=== PATIENT | female | born 1980 | race Caucasian/White ===

== ENCOUNTER 2019-05-18 06:28 | Emergency (ER) | payer SELFPAY ==
[2019-05-18 06:29] VITALS: BP 142/80; PULSE 65; RESP 16; TEMP 36.2; O2SAT 96; BMI 38.2
--- NOTE | 2019-05-18 06:41 | ED.VISSUMM ---
- ER Visit Summary Date of Service: 05/18/19 Chief Complaint: Back pain History of Present Illness: The patient is a 39 F who presents with back pain. She has a history of fibromyalgia as well as lower back pain and was told clinically this was most likely due to a herniated disc. This is been increased over the last 2 weeks and particularly the last few days. It is worse at night when laying flat. She describes it as aching. Her pain is in her right lower back and radiates around to the right groin and down the right leg to about the level of the knee. She also complains of some tingling. No weakness. No fevers urinary retention fecal incontinence. She rates it as an 8 out of 10. She has been taking her prescribed gabapentin and naproxen. Physical Examination: Afebrile vitals unremarkable Patient appears comfortable smiling laughing with staff Heart regular rate and rhythm Lungs are clear Abdomen soft nontender nondistended Patient does have some paraspinal right lumbar tenderness Negative straight leg raise bilaterally Normal strength and sensation of the lower extremities with 5 out of 5 dorsiflexion, plantarflexion, EHL Easily palpable symmetric dorsalis pedis pulses Test Results: Not indicated Emergency Department Course and Treatment: Patient's presentation is consistent with lumbar radiculopathy. We will treat with a prednisone burst. She was advised on supportive care and advised to follow-up with her primary care physician should she understands to return for new or worsening symptoms. She was discharged. Treatment Plan: [] Disposition: Discharge Impression: Lumbar radiculopathy This note was generated with [employer] dictation software. It may contain incorrect words, spelling, and punctuation that were not noted in review of the chart prior to signing ED Disposition - Plan for ED Patient: Referrals: Juve Jiang DO [Primary Care Provider] -
--- NOTE | 2019-05-18 06:44 | ED.DEP ---
ED Disposition - Plan for ED Patient: Instructions: BACK PAIN w/ SCIATICA Prescriptions: predniSONE tablet 60 mg PO DAILY #15 tab Prescription Printed Referrals: Juve Jiang DO [Primary Care Provider] -
[2019-05-18 06:47] VITALS: RESP 14
== END 2019-05-18 06:49 | disposition home or self-care (01) ==
LOC: ED 06:46
PROVIDERS: Emergency Provider Emergency Medicine; Family Provider Student in an Organized Health Care Education/Training Program; PCP Student in an Organized Health Care Education/Training Program
DX: M54.16 Radiculopathy, lumbar region (principal); M79.7 Fibromyalgia; Z72.0 Tobacco use; Z79.899 Other long term (current) drug therapy
CPT/HCPCS: 99282

== ENCOUNTER 2019-09-29 13:36 | Emergency (ER) | payer OTHER, SELFPAY ==
[2019-09-29 13:37] VITALS: BP 140/100; PULSE 88; RESP 20; TEMP 36.7; O2SAT 100; BMI 38.0
--- NOTE | 2019-09-29 13:41 | EKG12_ITS ---
Test Reason : CP Blood Pressure : / mmHG Vent. Rate : 071 BPM Atrial Rate : 071 BPM P-R Int : 126 ms QRS Dur : 084 ms QT Int : 396 ms P-R-T Axes : 029 006 015 degrees QTc Int : 430 ms Normal sinus rhythm with sinus arrhythmia Nonspecific ST abnormality Abnormal ECG Confirmed by JOANA FORRESETR, VALERIE ([id number]), legal editor DAVID DIEHL ([id number]) on 10/03/2019 11:36:30 AM Referred By: LETTY Confirmed By:VALERIE BERNARD MD
[2019-09-29] MEDS: Aspirin 81 MG TAB.CHEW 324 MG PO (13:48)
--- NOTE | 2019-09-29 13:50 | RAD_ITS ---
STUDY: X-RAY CHEST REASON FOR EXAM: Female, 39 years old. Chest tightness. TECHNIQUE: Single AP portable view of the chest. COMPARISON: None. FINDINGS: EKG electrodes are seen. The lungs are clear and expanded. Scattered calcified granulomas. There is no demonstrated pleural abnormality. Normal size heart. Normal mediastinum and alejandra. Normal visualized pulmonary arteries. Normal visualized aortic arch and descending thoracic aorta. Normal visualized thoracic spine. Normal visualized ribs, clavicles, and shoulders. There is no demonstrated abnormality of the visualized soft tissue structures of the upper abdomen. RAD/Chest 1 View (Portable) IMPRESSION: Normal x-ray examination of the chest. Electronically Signed: Radhames Singh, at 14:14 EST , Service support ,
--- NOTE | 2019-09-29 13:52 | ED.DCSUM_ITS ---
- ER Visit Summary Date of Service: 09/29/19 Chief Complaint: Chest discomfort History of Present Illness: The patient is a 39 F history of fibromyalgia and a prior DVT after surgery. She is not on blood thinners. States that she has had a recent cough with URI. And earlier this morning around 1 AM woke up with some chest discomfort in her sternal area. Went back to sleep. When she woke up again later this morning she had discomfort that would radiate to her arms and her neck. Really no shortness of breath. No hemoptysis. Is not pleuritic. She is more of a dull aching pain. Is worse with movement. She denies any nausea or diaphoresis. No leg pain or swelling. She has no cardiac history other than a possible heart murmur. She denies any recent exertional dyspnea or exertional chest pain. There is no family history of coronary artery disease. Physical Examination: Middle-aged female no acute distress initial blood pressure 140/100. Pulse ox 9% on room air no signs hypoxia. HEENT exam unremarkable neck nontender. Lungs clear to auscultation bilaterally. Heart regular rhythm no murmur. Chest wall shows reproducible sternal chest wall pain. No subcu air crepitance. Abdomen soft nontender normal bowel sounds no peritoneal signs. Patient is moving all 4 extremities. Equal symmetrical radial pulses. Calves are nontender without edema no cords. Neurologically she is awake and alert. Test Results: Initial EKG shows a sinus rhythm rate of 71 with a sinus arrhythmia. No acute signs of LA or ischemia. Portable chest x-ray one view read on myself the radiologist shows no acute abnormality. Normal cardiac silhouette mediastinum. CBC normal. Chemistries normal. Troponin normal. [place] EKG showed a sinus bradycardia but no acute LA or ischemia. Otherwise unchanged. Both EKGs are unchanged from a prior from 2013. Emergency Department Course and Treatment: She will undergo a cardiac work-up. She will be given aspirin. Clinically I think this is noncardiac chest pain most likely chest wall pain or from her fibromyalgia and/or her cough. Clinically does not appear to be a PE. Is not pleuritic. There is no hemoptysis. She is not tachycardic. She is non-hypoxic. There is no leg pain or swelling. Repeat exam at 1458 patient is doing well. Clinically I do not think this is cardiac. It is reproducible. It is not exertional. Treatment Plan: Ice to her chest wall. Motrin for pain. Follow-up. Disposition: Discharge Impression: Acute chest pain Acute chest wall pain This note was generated with [employer] dictation software. It may contain incorrect words, spelling, and punctuation that were not noted in review of the chart prior to signing ED Disposition - Plan for ED Patient: Disposition: Home or Assisted Living Instructions: Chest Wall Strain Referrals: Juve Jiang DO [Primary Care Provider] - As Needed Additional Instructions: Ice to chest wall. Motrin for pain. Follow-up with his doctor if not improving or return if worse.
[2019-09-29 13:55] LABS: Absolute Lymphocyte Count 2.35 X10^3/uL (0.83-4.51); Absolute Neutrophil Count 5.1 X10^3/uL (2.0-7.7); Basophil# 0.03 X10^3/uL; Basophil% 0.4 % (0-1); Eosinophil# 0.13 X10^3/uL; Eosinophils% 1.5 % (0-5); Hematocrit 44.8 % (37-47); Hemoglobin 14.8 g/dL (12.0-15.0); Lymphocyte # 2.35 X10^3/ul (4.0); Mean Corpuscular Hgb 31.6 pg (27.0-32.0); Mean Corpuscular Volume 95.7 fL (81-99); Mean Platelet Vol. 9.4 fl (6.2-12.0); Monocyte# 0.73 X10^3/uL; Monocyte% 8.7 % (0-10); NRBC Flagged by Analyzer 0 % (0-5); Neutrophil # 5.14 X10^3/uL (2.7-7.7); Neutrophil % 61.2 % (47-70); Platelet Count 315 K/mm3 (150-450); RBC Distribution Width CV 13.5 % (11.6-14.6); RBC Distribution Width SD 47.7 fl (35.1-43.9); Red Blood Count 4.68 M/mm3 (4.2-5.4); White Blood Count 8.4 K/mm3 (4.4-11.0)
[2019-09-29 14:23] LABS: Anion Gap 5 (5-15); BUN 8 mg/dL (7-18); BUN/Creat Ratio 8.9 RATIO (10-20); Calcium,Total 8.9 mg/dL (8.5-10.1); Chloride 107 mmol/L (98-107); EST Glomerular Filtration Rate 74 mL/min (>60); Est Glom Filt Rate - Afr Amer 90 mL/min (>60); Estimated Creatinine Clearance 84.66 ml/min; Glucose 107 mg/dL (74-106); Potassium 3.7 mmol/L (3.5-5.1); Sodium Level 139 mmol/L (136-145)
--- NOTE | 2019-09-29 15:00 | ED.DEP ---
ED Disposition - Plan for ED Patient: Disposition: Home or Assisted Living Instructions: Chest Wall Strain Referrals: Juve Jiang DO [Primary Care Provider] - As Needed Additional Instructions: Ice to chest wall. Motrin for pain. Follow-up with his doctor if not improving or return if worse.
--- NOTE | 2019-09-29 15:01 | EKG12_ITS ---
Test Reason : REPEAT Blood Pressure : / mmHG Vent. Rate : 052 BPM Atrial Rate : 052 BPM P-R Int : 130 ms QRS Dur : 076 ms QT Int : 458 ms P-R-T Axes : 034 014 027 degrees QTc Int : 425 ms Sinus bradycardia Otherwise normal ECG Confirmed by JOANA FORRESTER, VALERIE ([id number]), non linear editor DAVID DIEHL ([id number]) on 10/03/2019 11:36:47 AM Referred By: LETTY Confirmed By:VALERIE BERNARD MD
[2019-09-29 15:26] VITALS: BP 116/94; PULSE 68; RESP 18; O2SAT 96
== END 2019-09-29 15:27 | disposition home or self-care (01) ==
PROVIDERS: Emergency Provider Emergency Medicine; Family Provider Student in an Organized Health Care Education/Training Program; PCP Student in an Organized Health Care Education/Training Program
DX: R07.89 Other chest pain (principal); M79.7 Fibromyalgia; Z72.0 Tobacco use; Z79.899 Other long term (current) drug therapy; Z86.718 Personal history of other venous thrombosis and embolism
CPT/HCPCS: 71045; 80048; 84484; 85025; 93005; 99285; A4216

== ENCOUNTER 2020-10-02 22:04 | Emergency (ER) | payer OTHER, SELFPAY ==
[2020-03-27 14:08] VITALS: BMI 38.0
[2020-10-02 22:05] VITALS: BP 153/95; PULSE 114; RESP 16; TEMP 37.1; O2SAT 97; BMI 36.5
--- NOTE | 2020-10-02 22:14 | CT_ITS ---
STUDY: CT FACIAL BONES WITHOUT CONTRAST REASON FOR EXAM: Female, 40 years old. PULLED DOWN STAIRS BY HER DOG. FACIAL ABRASIONS. LAC LT CHEEK. NO LOC RADIATION DOSAGE (If Supplied By Facility): CTDIvol = ( 29.38 ) mGy, DLP = ( 562.15 ) mGycm TECHNIQUE: The patient was scanned in a multi detector CT scanner. Sagittal and coronal images were reconstructed. Individualized dose optimization techniques were used for this CT. COMPARISON: None. FINDINGS: Subcutaneous hematoma left cheek. Normal orbital freeman and orbital contents. Normal nasal bones and anterior nasal spine. Normal facial bones. There is no demonstrated fracture. Normal visualized paranasal sinuses. CT/Sinus/Facial Bone IMPRESSION: Subcutaneous hematoma left cheek. No fracture. Electronically Signed: Benedicto Gill MD at 22:40 EST , Service support ,
--- NOTE | 2020-10-02 22:15 | ED.DCSUM_ITS ---
- ER Visit Summary Date of Service: 10/02/20 Chief Complaint: Fall History of Present Illness: The patient is a 40 F who presents after a fall. Her dog pulled her down some stairs just prior to arrival. She sustained injuries to her face and left knee. Denies any LOC. She has tenderness in the left cheek area. Her left knee is also tender. Pain is worse with touching and walking. She took no medications for this at home. She denies any history of any knee surgeries. She is on no blood thinning medications. Physical Examination: Vital signs reviewed. Patient exam shows tenderness and slight swelling to the left zygoma area. There is a abrasion to the left side of the face. There is no nasal trauma. Her cervical spine is nontender. Heart is regular rate and rhythm without murmurs. Lungs are clear to auscultation. Abdomen is soft and nontender. Extremities reveal tenderness diffusely about the left knee. She has limited range of motion secondary to pain. Her extensor mechanism is intact. There is an abrasion on the infrapatellar area. No laceration is noted. Her GCS is 15. Neurologic exam normal. Test Results: CAT scan of the facial bones shows no acute abnormalities except for a hematoma. No fractures are seen. 3 view x-ray of the left knee interpreted by myself and radiologist shows no acute findings Emergency Department Course and Treatment: His tetanus was updated. She was given [place] for pain here. No fractures are seen on imaging studies. Patient will be discharged to use ice for her discomfort. I will give her a prescription for naproxen. She will call her doctor for follow-up Treatment Plan: [] Disposition: Discharge Impression: Facial contusion, left knee contusion, multiple abrasions This note was generated with [employer] dictation software. It may contain incorrect words, spelling, and punctuation that were not noted in review of the chart prior to signing ED Disposition - Plan for ED Patient: Disposition: Home or Assisted Living Instructions: ED Mechanical Fall Prescriptions: Naproxen [Naprosyn] 500 mg PO BID PRN #20 tab Transmission Status: Pending to [facility] Referrals: Juve Jiang DO [Primary Care Provider] -
[2020-10-02] MEDS: Diphth,Pertuss(Acell),Tet Vac 0.5 ML Vial IM (22:20)
[2020-10-02] MEDS: HYDROcodone Bitartrate/Apap 5/325 Tablet PO (22:20)
--- NOTE | 2020-10-02 22:27 | RAD_ITS ---
STUDY: X-RAY - LEFT KNEE REASON FOR EXAM: Female, 40 years old. Pulled down stairs by her dog. Abrasion to anterior left knee. TECHNIQUE: 3 view(s) of the knee. COMPARISON: None. FINDINGS: Normal visualized distal femur. Normal visualized proximal tibia and fibula. Normal proximal tibiofibular articulation. Normal medial femorotibial compartment. Normal lateral femorotibial compartment. Normal patellofemoral articulation. The soft tissue structures are unremarkable. RAD/Knee 3 Views IMPRESSION: Normal x-ray examination of the knee. Electronically Signed: Benedicto Gill MD at 22:43 EST , Service support ,
[2020-10-02 23:00] VITALS: O2SAT 99
== END 2020-10-02 23:01 | disposition home or self-care (01) ==
PROVIDERS: Emergency Provider Emergency Medicine; PCP Student in an Organized Health Care Education/Training Program
DX: S00.83XA Contusion of other part of head, initial encounter (principal); S80.02XA Contusion of left knee, initial encounter; S80.212A Abrasion, left knee, initial encounter; S00.81XA Abrasion of other part of head, initial encounter; W10.9XXA Fall (on) (from) unspecified stairs and steps, initial encounter; Y93.9 Activity, unspecified; Y92.9 Unspecified place or not applicable; F32.9 Major depressive disorder, single episode, unspecified; Z79.899 Other long term (current) drug therapy; Z72.0 Tobacco use
CPT/HCPCS: 70486; 73562; 90715; 99283

== ENCOUNTER 2020-10-08 17:09 | Emergency (ER) | payer OTHER, SELFPAY ==
[2020-10-08 17:10] VITALS: BP 142/103; PULSE 57; RESP 16; TEMP 36.8; O2SAT 100; BMI 38.0
--- NOTE | 2020-10-08 17:22 | NURSING ---
pt fell last thursday and was seen in ed. c/o increased swelling and hardened area under lt eye. pt has discolorization from lt eye down to jaw line. lac to lt cheek, above lt side of upper lip.
--- NOTE | 2020-10-08 17:29 | CT_ITS ---
STUDY: CT FACIAL BONES WITHOUT CONTRAST REASON FOR EXAM: Female, 40 years old. LEFT FACIAL SWELLING AFTER RECENT FALL. SEEN ON 10.02 FOR SAME, BRUISING TO FACE RADIATION DOSAGE (If Supplied By Facility): CTDIvol = ( 29.38 ) mGy, DLP = ( 642.95 ) mGycm TECHNIQUE: Axial CT images of the facial bones were obtained with multiplanar reconstruction. The protocol utilizes one or more of the following dose reduction techniques: automated exposure control, adjustment of the mA and/or KV according to the patient size, and/or use of iterative reconstruction techniques. Individualized dose optimization techniques were used for this CT. COMPARISON: Facial bone CT dated October 02, 2020 FINDINGS: Soft Tissues: Reidentification of small left mid facial subcutaneous hematoma which is slightly smaller in size currently measuring 2.91 x 1.57 cm compared to the previous measurement of 3.25 x 1.77 cm. Facial Bones: Normal: No fracture or destructive process. Mandible/TMJ: Normal. Orbital Contents: Normal globes, extraocular muscles, optic nerves, intraconal and extraconal spaces. Normal lamina papyracea. Visualized Paranasal Sinuses: Normal. Visualized Mastoid Air Cells: Normal. CT/Sinus/Facial Bone IMPRESSION: 1. Reidentification of small left mid facial subcutaneous hematoma which is slightly smaller in size currently measuring 2.91 x 1.57 cm compared to the previous measurement of 3.25 x 1.77 cm. Electronically Signed: Rosales Urban MD at 18:48 EST , Service support ,
--- NOTE | 2020-10-08 17:34 | ED.VIS.GEN ---
History of Present Illness Chief Complaint: Other, Pain/Inj Informant: Patient Onset: Yesterday Context: Gradual Onset Timing: Continuous Current Severity: Moderate Maximum Severity: Moderate Narrative: The patient is a 40-year-old female with no significant medical history the presents to the emergency department with facial pain. The patient had a mechanical fall about a week ago. She was actually seen here at that time. She underwent imaging which showed a hematoma, but no fracture. She states the swelling was going down. That she had a small abrasion on the area and when she was wearing her mask it seemed to increase the swelling. Yesterday, she states her dog jumped and struck her in the face. Since then, the area has gotten more hard. She denies headache or visual change. She states she is otherwise been in her normal state of health. Prior similar symptoms: Yes Recent Illness/Hospitalization: No Past Medical History - Allergies and Home Meds Allergies/Adverse Reactions: Allergies codeine Adverse Reaction (Verified 10/08/20 17:12) Nausea/Vom/Diarrhea Primary Care Physician: Juve Jiang DO [Primary Care Provider] - Prior records reviewed: Yes Past Medical History: None Surgical History: noncontributory Smoking Status: Current every day smoker Review of Systems General: Denies: Chills, Fever, Sweats Eyes: Denies: Visual changes - bilaterally, Diplopia ENT: Denies: Rhinorrhea, Sore throat Cardiovascular: Denies: Chest pain, Palpitations Respiratory: Denies: Dyspnea, Cough, Dyspnea on exertion Gastrointestinal: Denies: Abdominal pain, Nausea, Vomiting, Diarrhea, Melena, Hematochezia Genitourinary: Denies: Dysuria, Hematuria, Frequency Musculoskeletal: Denies: Back pain, Extremity Pain Skin: Denies: Rash, Wounds Neurological: Denies: Headache, Weakness, Numbness Physical Exam Vital Signs/Narrative: Vital Signs Temp Pulse Resp BP Pulse Ox 10/08/20 17:10 98.3 F 57 L 16 142/103 H 100 Inital Vital Signs reviewed: Yes General: Well nourished, Well developed, No Acute Distress Head: Normocephalic, Trauma - Hematoma over the left cheek into the zygomatic arch. There is tenderness, but no fluctuance. No abnormalities of extraocular motion. Eyes: Perrl, EOMI ENT: Moist mucous membranes, No rhinorrhea Neck: Supple, Nontender Cardiovascular: Regular rate, Regular rhythm, No murmurs Respiratory: No distress, CTA bilaterally, Chest nontender Abdomen: Soft, Nontender, Nondistended, Normal bowel sounds Back: Nontender, Normal Inspection Extremities: Nontender, No edema Skin: Normal color, No rash Neurological: Alert, Oriented x3, Cranial nerves II-XII grossly intact, Normal Strength, Normal Sensation Psychological: Normal affect, Normal Mood Diagnostic/Tx/Re-eval Clinical Impression(s) from Imaging Studies Facial/Sinus 10/08/20 17:29 IMPRESSION: 1. Reidentification of small left mid facial subcutaneous hematoma which is slightly smaller in size currently measuring 2.91 x 1.57 cm compared to the previous measurement of 3.25 x 1.77 cm. Electronically Signed: Rosales Urban MD at 18:48 EST , Service support , - Medical Decision Making The patient did have new injury and reaccumulation of hematoma. There is no central fluctuance. The skin itself is not erythematous. I did repeat the images to make sure there is no new occult fracture. This shows hematoma, but it is smaller. There is no air-fluid level. I do not feel this represents a facial abscess. However, given the duration of her hematoma and the tenderness she has in the area, I am going to cover her with doxycycline. She is comfortable with this plan of care. She was counseled on concerning symptoms and reasons to return. She will be discharged home. Impression 1. Left facial hematoma ED Disposition - Plan for ED Patient: Disposition: Home or Assisted Living Instructions: ED Hematoma Prescriptions: Doxycycline 100 mg PO BID #20 cap Prescription Printed Referrals: Juve Jiang DO [Primary Care Provider] -
== END 2020-10-08 19:02 | disposition home or self-care (01) ==
LOC: ED 17:34
PROVIDERS: Emergency Provider Emergency Medicine; PCP Student in an Organized Health Care Education/Training Program
DX: S00.83XA Contusion of other part of head, initial encounter (principal); W19.XXXA Unspecified fall, initial encounter; Y93.9 Activity, unspecified; Y92.9 Unspecified place or not applicable; F17.200 Nicotine dependence, unspecified, uncomplicated
CPT/HCPCS: 70486; 99282

== ENCOUNTER 2020-11-06 08:15 | Emergency (ER) | payer OTHER, SELFPAY ==
[2020-11-06 08:15] VITALS: BP 155/98; PULSE 90; RESP 16; TEMP 36.2; O2SAT 97; BMI 36.5
--- NOTE | 2020-11-06 08:27 | CT_ITS ---
STUDY: CT PARANASAL SINUSES WITH CONTRAST REASON FOR EXAM: Female, 40 years old. Persistent facial hematoma with left eye swelling, fell 1 month ago. RADIATION DOSAGE (If Supplied By Facility): CTDIvol = ( 29.38 ) mGy, DLP = ( 613.57 ) mGycm TECHNIQUE: The patient was scanned in a multi-detector CT scanner. High resolution transaxial imaging was performed following the intravenous administration of IV 100mL Isovue-300. Sagittal and coronal images were reconstructed. Individualized dose optimization techniques were used for this CT. COMPARISON: Comparison is made with prior examination dated 10/08/2021. FINDINGS: FRONTAL SINUSES: Normal development and aeration of the bilateral frontal sinuses without mucosal inflammatory disease. ETHMOIDAL SINUSES: Normal development and aeration of the bilateral ethmoidal air cells without mucosal inflammatory disease. MAXILLARY SINUSES: Normal development and aeration of the bilateral maxillary antra without mucosal inflammatory disease. SPHENOIDAL SINUSES: Normal aeration of the bilateral sphenoid sinuses and there is no mucosal inflammatory disease. OMU: Normal aeration of the bilateral maxillary infundibulum. Normal uncinate process, ethmoid bulla, and hiatus semilunaris. MIDDLE TURBINATES: Normal bilateral middle turbinates without a liss bullosa or paradoxical curvature. INFERIOR TURBINATES: Normal bilateral inferior turbinates. NASAL SEPTUM: Normal midline nasal septum and there is no nasal septal mass lesions, deviation or spur. Normal anterior cranial fossa, gricelda brandi and cribriform plate. Normal bilateral orbital contents. Normal nasopharynx without adenoidal pad hypertrophy, or a posterior nasopharyngeal retention cyst. Persistent 1.3 cm x 1.5 cm soft tissue density in the subcutaneous tissues overlying the anterior aspect of the left maxillary sinus. This is improved as compared to prior study. CT/Sinus/Facial Bone WITH Contras IMPRESSION: For the decreasing size of the small left mid facial subcutaneous hematoma presently measuring 1.3 cm x 1.5 cm. Electronically Signed: Radhames Singh MD at 9:17 EST , Service support ,
--- NOTE | 2020-11-06 08:28 | ED.VIS.GEN ---
History of Present Illness Chief Complaint: Head Injury Informant: Patient Onset: Weeks Context: Gradual Onset Timing: Continuous Current Severity: Moderate Maximum Severity: Moderate Narrative: The patient is a 40-year-old female who presents with facial swelling. The patient had an injury about 6 weeks ago. At that point, she had a fall and struck her face. She had a CT at that time which showed hematoma without fracture. About a week after, the patient was improving and then got hit in the face by her dog. I actually evaluated her at that time. I did repeat her imaging. There was still small hematoma but it was improved in size. Due to the patient's increasing erythema, she was placed on antibiotics. She states that she felt like it got better for about 2 weeks. However, over the past 2 weeks the symptoms have worsened. She states she feels like there is a hard knot under her laceration from her initial injury. She states that because of that, she is getting a lot of swelling of her lower eyelid. She states sometimes, she will have blurry vision because her eye is watering. She denies fevers or chills. Prior similar symptoms: Yes Recent Illness/Hospitalization: No Past Medical History - Allergies and Home Meds Allergies/Adverse Reactions: Allergies codeine Adverse Reaction (Verified 11/06/20 08:17) Nausea/Vom/Diarrhea Primary Care Physician: Yaakov Hugo MD [STAFF PHYSICIAN] - Prior records reviewed: Yes Past Medical History: None Surgical History: noncontributory Smoking Status: Current every day smoker Review of Systems General: Denies: Chills, Fever, Sweats Eyes: Reports: Blurred vision - left. Denies: Visual changes - bilaterally, Diplopia ENT: Denies: Rhinorrhea, Sore throat Cardiovascular: Denies: Chest pain, Palpitations Respiratory: Denies: Dyspnea, Cough, Dyspnea on exertion Gastrointestinal: Denies: Abdominal pain, Nausea, Vomiting, Diarrhea, Melena, Hematochezia Genitourinary: Denies: Dysuria, Hematuria, Frequency Musculoskeletal: Denies: Back pain, Extremity Pain Skin: Denies: Rash, Wounds Neurological: Denies: Headache, Weakness, Numbness Physical Exam Vital Signs/Narrative: Vital Signs Temp Pulse Resp BP Pulse Ox 11/06/20 08:15 97.2 F L 90 16 155/98 H 97 Inital Vital Signs reviewed: Yes General: Well nourished, Well developed, No Acute Distress Head: Normocephalic, Atraumatic Eyes: Perrl, EOMI, - - Slight edema of the left lower lid. No abnormalities of extraocular motion. Tenderness to palpation along the left mandibular area without fluctuance. ENT: Moist mucous membranes, No rhinorrhea Neck: Supple, Nontender Cardiovascular: Regular rate, Regular rhythm, No murmurs Respiratory: No distress, CTA bilaterally, Chest nontender Abdomen: Soft, Nontender, Nondistended, Normal bowel sounds Back: Nontender, Normal Inspection Extremities: Nontender, No edema Skin: Normal color, No rash Neurological: Alert, Oriented x3, Cranial nerves II-XII grossly intact, Normal Strength, Normal Sensation Psychological: Normal affect, Normal Mood Diagnostic/Tx/Re-eval Clinical Impression(s) from Imaging Studies Facial/Sinus 11/06/20 08:27 IMPRESSION: For the decreasing size of the small left mid facial subcutaneous hematoma presently measuring 1.3 cm x 1.5 cm. Electronically Signed: Radhames Singh MD at 9:17 EST , Service support , Abnormal Lab Results 11/06/20 11/06/20 08:37 08:37 WBC 6.6 RBC 4.75 Hgb 14.7 Hct 43.6 MCV 91.8 MCH 30.9 MCHC 33.7 RDW Std Deviation 46.6 H RDW Coeff of Jose 13.7 Plt Count 295 MPV 9.6 Immature Gran % (Auto) 0.300 Neut % (Auto) 62.7 Lymph % (Auto) 25.7 [place] % (Auto) 8.7 Eos % (Auto) 2.0 Baso % (Auto) 0.6 Absolute Neuts (auto) 4.1 Absolute Lymphs (auto) 1.69 Nucleated RBC % 0 Sodium 139 Potassium 3.9 Chloride 109 H Carbon Dioxide 25.0 Anion Gap 5 BUN 10 Creatinine 0.92 Estim Creat Clear Calc 82.00 Est GFR (MDRD) Af Amer 87 Est GFR (MDRD) Non-Af 72 BUN/Creatinine Ratio 10.9 Glucose 97 Calcium 9.0 - Medical Decision Making The patient has persistent swelling along facial hematoma. The area is more firm. There is no central fluctuance. Her recurrent edema does seem to be dependent. She states worse in the morning when she wakes up. She is had no significant visual change. There is no abnormalities of extraocular motion. However, given the persistent edema I did repeat imaging with contrast. The hematoma is actually smaller. There is no evidence of deep space infection or obstructive process. However, given the duration I am going to give her outpatient plastic surgery follow-up. She did have significant improvement with antibiotics prior and I do feel that this is reasonable. Patient will be discharged home. Impression 1. Persistent left facial hematoma ED Disposition - Plan for ED Patient: Instructions: ED Facial Contusion Prescriptions: Doxycycline 100 mg PO BID #20 cap Prescription Printed Referrals: Yaakov Hugo MD [STAFF PHYSICIAN] -
[2020-11-06 08:53] LABS: Absolute Lymphocyte Count 1.69 X10^3/uL (0.83-4.51); Absolute Neutrophil Count 4.1 X10^3/uL (2.0-7.7); Basophil# 0.04 X10^3/uL; Basophil% 0.6 % (0-1); Eosinophil# 0.13 X10^3/uL; Hematocrit 43.6 % (37-47); Hemoglobin 14.7 g/dL (12.0-15.0); Lymphocyte # 1.69 X10^3/ul (4.0); Lymphocyte % 25.7 % (19-41); Mean Corp Hgb Conc 33.7 g/dL (32-36); Mean Corpuscular Hgb 30.9 pg (27.0-32.0); Mean Corpuscular Volume 91.8 fL (81-99); Mean Platelet Vol. 9.6 fl (6.2-12.0); Monocyte# 0.57 X10^3/uL; Monocyte% 8.7 % (0-10); NRBC Flagged by Analyzer 0 % (0-5); Neutrophil # 4.12 X10^3/uL (2.7-7.7); Neutrophil % 62.7 % (47-70); Platelet Count 295 K/mm3 (150-450); RBC Distribution Width CV 13.7 % (11.6-14.6); RBC Distribution Width SD 46.6 fl (35.1-43.9); Red Blood Count 4.75 M/mm3 (4.2-5.4); White Blood Count 6.6 K/mm3 (4.4-11.0)
[2020-11-06 08:57] LABS: BUN 10 mg/dL (7-18); BUN/Creat Ratio 10.9 RATIO (10-20); Chloride 109 mmol/L (98-107); Creatinine, Serum 0.92 mg/dL (0.55-1.02); EST Glomerular Filtration Rate 72 mL/min (>60); Est Glom Filt Rate - Afr Amer 87 mL/min (>60); Glucose 97 mg/dL (74-106); Potassium 3.9 mmol/L (3.5-5.1); Sodium Level 139 mmol/L (136-145)
[2020-11-06 08:58] LABS: Anion Gap 5 (5-15)
== END 2020-11-06 09:35 | disposition home or self-care (01) ==
LOC: ED 09:19
PROVIDERS: Emergency Provider Emergency Medicine; PCP Student in an Organized Health Care Education/Training Program
DX: S00.83XA Contusion of other part of head, initial encounter (principal); H02.845 Edema of left lower eyelid; W19.XXXA Unspecified fall, initial encounter; Y93.9 Activity, unspecified; Y92.9 Unspecified place or not applicable; F17.200 Nicotine dependence, unspecified, uncomplicated
CPT/HCPCS: 70487; 80048; 85025; 99283; Q9967; A4216

== ENCOUNTER 2021-12-30 16:06 | Emergency (ER) | payer OTHER, SELFPAY ==
[2021-12-30 16:07] VITALS: BP 157/107; PULSE 77; RESP 17; TEMP 36.3; O2SAT 96; BMI 38.5
--- NOTE | 2021-12-30 16:52 | EKG12_ITS ---
Test Reason : CP Blood Pressure : / mmHG Vent. Rate : 068 BPM Atrial Rate : 068 BPM P-R Int : 128 ms QRS Dur : 078 ms QT Int : 394 ms P-R-T Axes : 050 016 033 degrees QTc Int : 418 ms Normal sinus rhythm Normal ECG Confirmed by JOANA FORRESTER, VALERIE ([id number]), dictionary editor MURTAAZ VERA ([id number]) on 01/02/2022 10:01:36 AM Referred By: AMARIS/RAIMUNDO Confirmed By:VALERIE BERNARD MD
[2021-12-30 17:06] VITALS: BP 128/80; PULSE 62; RESP 14; O2SAT 96
[2021-12-30] MEDS: Aspirin 81 MG TAB.CHEW 324 MG PO (17:10)
[2021-12-30 17:17] LABS: Absolute Lymphocyte Count 1.92 X10^3/uL (0.83-4.51); Absolute Neutrophil Count 4.8 X10^3/uL (2.0-7.7); Basophil# 0.04 X10^3/uL; Basophil% 0.5 % (0-1); Eosinophil# 0.08 X10^3/uL; Eosinophils% 1.1 % (0-5); Hematocrit 43.1 % (37-47); Hemoglobin 14.4 g/dL (12.0-15.0); Lymphocyte # 1.92 X10^3/ul (0.83-4.51); Lymphocyte % 25.3 % (19-41); Mean Corp Hgb Conc 33.4 g/dL (32-36); Mean Corpuscular Hgb 31.6 pg (27.0-32.0); Mean Corpuscular Volume 94.7 fL (81-99); Mean Platelet Vol. 9.7 fl (6.2-12.0); Monocyte# 0.69 X10^3/uL; Monocyte% 9.1 % (0-10); NRBC Flagged by Analyzer 0 % (0-5); Neutrophil # 4.83 X10^3/uL (2.7-7.7); Neutrophil % 63.6 % (47-70); Platelet Count 278 K/mm3 (150-450); Red Blood Count 4.55 M/mm3 (4.2-5.4); White Blood Count 7.6 K/mm3 (4.4-11.0)
--- NOTE | 2021-12-30 17:23 | RAD_ITS ---
STUDY: X-RAY CHEST REASON FOR EXAM: Female, 41 years old. Atypical chest pain TECHNIQUE: Single AP portable view of the chest. COMPARISON: None. FINDINGS: EKG leads overlie the chest The lungs are clear and expanded. There is no demonstrated pleural abnormality. Normal size heart. Normal mediastinum and alejandra. Normal visualized pulmonary arteries. Normal visualized aortic arch and descending thoracic aorta. Normal visualized thoracic spine. Normal visualized ribs, clavicles, and shoulders. There is no demonstrated abnormality of the visualized soft tissue structures of the upper abdomen. RAD/Chest 1 View (Portable) IMPRESSION: Normal x-ray examination of the chest. Electronically Signed: Edward Funez MD at 17:55 EDT ,
[2021-12-30 17:39] LABS: Anion Gap 4 (5-15); BUN 10 mg/dL (7-18); BUN/Creat Ratio 11.8 RATIO (10-20); Calcium,Total 9.1 mg/dL (8.5-10.1); Chloride 109 mmol/L (98-107); Creatinine, Serum 0.84 mg/dL (0.55-1.02); EST Glomerular Filtration Rate 79 mL/min (>60); Est Glom Filt Rate - Afr Amer 95 mL/min (>60); Estimated Creatinine Clearance 85.71 ml/min; Glucose 110 mg/dL (74-106); Potassium 3.7 mmol/L (3.5-5.1); Sodium Level 138 mmol/L (136-145); Troponin-I HS 3 pg/mL (3.0-54.0)
[2021-12-30 18:03] VITALS: BP 129/83; PULSE 55; RESP 19; O2SAT 94
--- NOTE | 2021-12-30 18:51 | ED.VIS.CHEST ---
HPI History of Present Illness Chief Complaint: Chest Pain Informant: patient Narrative Narrative: Patient presents with right-sided parasternal chest pain. She was scrubbing the carpet. As soon as she bent come up she got a sharp pain in that location. It does not radiate or migrate. There is been no nausea vomiting shortness of breath lightheadedness near syncope or diaphoresis. It is reproduced with moving her arms forward twisting her torso or lifting her chin up very high or bending it down low. She is not actually short of breath. She is on meds for cholesterol that are brand-new. She is a smoker and was counseled to quit. No family history of cardiovascular disease. No travel surgery immobilization personal or family history of DVT or PE. [facility] Medical History Allergies Carpal tunnel syndrome Contusion of other part of head, sequela Fall as cause of accidental injury at home as place of occurrence GERD (gastroesophageal reflux disease) Heart murmur History of blood clots HISTORY OF NECK DECOMPRESSION Hypertrophic scar Plantar fasciitis Unspecified open wound of left cheek and temporomandibular area, sequela Unspecified open wound of lip, sequela Vitamin D deficiency Home Medications albuterol sulfate 1 puff INHALATION Q4H PRN PRN 12/30/21 [History Last Taken Unknown] atorvastatin 10 mg PO QHS 12/30/21 [History Last Taken Unknown] cholecalciferol (vitamin D3) 50,000 unit PO SUWE 12/30/21 [History Last Taken Unknown] dapsone 25 mg PO DAILY 12/30/21 [History Last Taken Unknown] duloxetine 20 mg PO DAILY 12/30/21 [History Last Taken Unknown] gabapentin 600 mg PO TID 12/30/21 [History Last Taken Unknown] lansoprazole 30 mg PO DAILY 12/30/21 [History Last Taken Unknown] naproxen 500 mg PO BID #14 tab 12/30/21 [Rx Last Taken Unknown] Allergy/AdvReac Type Severity Reaction Status Date / Time codeine AdvReac Nausea/Vom/ Verified 12/30/21 16:06 Diarrhea Family History Mother Asthma Arthritis Diabetes Hypertension Father Arthritis Hypertension Grandmother Arthritis Diabetes Hypertension Surgical History H/O elbow surgery H/O excision of lamina of cervical vertebra for decompression of spinal cord History of History of D&C History of endometrial ablation History of fasciotomy Social History Smoking Status: Current every day smoker tobacco type: cigarettes counseling given: provider counseling and counseling >10 minutes alcohol intake: current substance use type: does not use additional social history: Does not take aspirin Does take ibuprofen as needed ROS ROS ED Constitutional Constitutional ED: Denies fever(s) Eyes Eyes: Denies blurry vision ENT ENT ED: Denies rhinorrhea or sore throat Cardiovascular Cardiovascular: Reports as per HPI and chest pain; Denies palpitations or racing heartbeat Respiratory/Chest Respiratory/Chest: Denies cough or dyspnea Gastrointestinal Gastrointestinal: Denies nausea or vomiting Genitourinary Genitourinary ED: Denies hematuria Musculoskeletal Musculoskeletal: Denies arthralgias, back pain, myalgias or neck pain Integumentary Denies rash Neurologic Neurologic: Denies headache(s), paresthesias or weakness Endocrine Endocrinology: Denies polydipsia or polyuria Hematologic/Lymphatic Hematologic/Lymphatic: Denies easy bleeding or easy bruising Allergic/Immunologic Allergic/Immunologic ED: Denies urticaria EXAM Physical Exam Const Vital Signs: 12/30/21 16:07 12/30/21 16:35 12/30/21 17:03 Temperature 97.4 F L Temperature Source Temporal Pulse Rate 77 Respiratory Rate 17 Respiratory Effort Normal Non-Labored Blood Pressure 157/107 H Blood Pressure Mean 123 Pulse Ox 96 Oxygen Delivery Method Room Air Room Air 12/30/21 17:06 12/30/21 18:03 Temperature Temperature Source Pulse Rate 62 55 L Respiratory Rate 14 19 H Respiratory Effort Blood Pressure 128/80 H 129/83 H Blood Pressure Mean 96 98 Pulse Ox 96 94 Oxygen Delivery Method Room Air Room Air Positive well developed; Negative for unkempt General Appearance ED: well developed and NAD; Negative for unkempt HEENT Reports moist mucous membranes normocephalic and atraumatic Eyes General Eye ED: Negative for pale conjunctiva Neck no JVD General: Negative for tenderness Chest Wall inspection of chest normal Chest Narrative: Patient has reproducible tenderness of the chest to the right parasternal area. No skin changes or subcu air. Resp normal respiratory effort and clear to auscultation bilaterally Effort and Inspection: Negative for respiratory distress Auscultation: Negative for rales, rhonchi or wheezes Cardio regular rate, regular rhythm and no murmurs GI normal to inspection, nondistended, normoactive bowel sounds and soft to palpation GI Narrative: Benign abdomen including no right upper quadrant tenderness Back/Spine no CVA tenderness Extremity normal to inspection General Extremety ED: Negative for edema, pulses abnormal or tenderness General Extremity: Negative for edema or pulses abnormal Neuro Sensorium / Orientation: awake and alert Psych mental status grossly normal Appearance: Negative for unkempt Skin no rashes or lesions noted MDM MDM MDM Narrative Medical decision making narrative: EKG showed no acute process. X-ray was negative. CBC electrolytes and troponin were negative despite about 8 hours to 9 hours of symptoms. I think patient is okay to go home. We will try nonsteroidals ice and rest. I think this is likely musculoskeletal from scrubbing the floor and then pushing herself up to a standing position. Lab Data Attestation: I reviewed the patient's lab results. Labs: Laboratory Results - last 24 hr 12/30/21 12/30/21 17:00 17:00 WBC 7.6 RBC 4.55 Hgb 14.4 Hct 43.1 MCV 94.7 MCH 31.6 MCHC 33.4 RDW Std Deviation 49.0 H RDW Coeff of Jose 14.0 Plt Count 278 MPV 9.7 Immature Gran % (Auto) 0.400 Neut % (Auto) 63.6 Lymph % (Auto) 25.3 Bremer % (Auto) 9.1 Eos % (Auto) 1.1 Baso % (Auto) 0.5 Absolute Neuts (auto) 4.8 Absolute Lymphs (auto) 1.92 Nucleated RBC % 0 Sodium 138 Potassium 3.7 Chloride 109 H Carbon Dioxide 25.0 Anion Gap 4 L BUN 10 Creatinine 0.84 Estim Creat Clear Calc 85.71 Est GFR (MDRD) Af Amer 95 Est GFR (MDRD) Non-Af 79 BUN/Creatinine Ratio 11.8 Glucose 110 H Calcium 9.1 Troponin I High Sens 3 Radiography Diagnostic Testing: Clinical Impression(s) from Imaging Studies Chest X-Ray 12/30/21 17:23 IMPRESSION: Normal x-ray examination of the chest. Electronically Signed: Edward Funez MD at 17:55 EDT , EKG Initial EKG: Comments: EKG done for chest pain read by me shows normal sinus rhythm with overall rate of 68. No ectopy. No acute ST elevation or depression. [place] interval, QRS duration and QTc normal. Discharge Plan Triage Chief Complaint: Chest Pain ED Provider: Mayur Pierre Dx/Rx/DC Orders Clinical Impression: Chest wall injury Instructions: ED Chest Wall Pain, Costochondritis Prescriptions: New naproxen 500 MG tablet 500 mg PO BID Qty: 14 RF: 0 No Action atorvastatin 10 mg tablet 10 mg PO QHS RF: 0 lansoprazole 30 mg capsule,delayed release(DR/EC) 30 mg PO DAILY RF: 0 dapsone 25 mg tablet 25 mg PO DAILY RF: 0 gabapentin 300 mg capsule 600 mg PO TID RF: 0 albuterol sulfate 90 mcg/actuation HFA aerosol inhaler 1 puff INHALATION Q4H PRN PRN (Reason: sob/wheezing) RF: 0 duloxetine 20 mg capsule,delayed release(DR/EC) 20 mg PO DAILY RF: 0 cholecalciferol (vitamin D3) 1,250 mcg (50,000 unit) capsule 50,000 unit PO SUWE RF: 0 Primary Care Provider: Juve Jiang Referrals: Juve Jiang, DO [Primary Care Provider] - 3-5 Days if not improving Disposition Disposition: Home, Self Care
[2021-12-30] MEDS: Naproxen 500 MG Tablet PO (19:05)
[2021-12-30 19:09] VITALS: BP 132/80; PULSE 78; RESP 16; O2SAT 99
== END 2021-12-30 19:09 | disposition home or self-care (01) ==
PROVIDERS: Emergency Provider Emergency Medicine; PCP Student in an Organized Health Care Education/Training Program; Visit Provider Emergency Medicine
DX: S29.009A Unspecified injury of muscle and tendon of unspecified wall of thorax, initial encounter (principal); F17.210 Nicotine dependence, cigarettes, uncomplicated; X50.1XXA Overexertion from prolonged static or awkward postures, initial encounter; Y93.9 Activity, unspecified; Y92.9 Unspecified place or not applicable; K21.9 Gastro-esophageal reflux disease without esophagitis; Z86.718 Personal history of other venous thrombosis and embolism; E55.9 Vitamin D deficiency, unspecified; Z79.899 Other long term (current) drug therapy
CPT/HCPCS: 71045; 80048; 84484; 85025; 93005; 99285; A4216

== ENCOUNTER → 2022-09-25 | Outpatient (CLI) | payer OTHER, SELFPAY ==
[2022-09-25 10:02] LABS: Absolute Lymphocyte Count 1.83 X10^3/uL (0.83-4.51); Absolute Neutrophil Count 3.6 X10^3/uL (2.0-7.7); Basophil# 0.03 X10^3/uL; Basophil% 0.5 % (0-1); Eosinophil# 0.11 X10^3/uL; Eosinophils% 1.8 % (0-5); Hematocrit 41.6 % (37-47); Hemoglobin 13.4 g/dL (12.0-15.0); Lymphocyte # 1.83 X10^3/ul (0.83-4.51); Lymphocyte % 29.7 % (19-41); Mean Corp Hgb Conc 32.2 g/dL (32-36); Mean Corpuscular Hgb 31.2 pg (27.0-32.0); Mean Platelet Vol. 9.8 fl (6.2-12.0); Monocyte# 0.55 X10^3/uL; Monocyte% 8.9 % (0-10); NRBC Flagged by Analyzer 0 % (0-5); Neutrophil # 3.62 X10^3/uL (2.7-7.7); Neutrophil % 58.8 % (47-70); Platelet Count 289 K/mm3 (150-450); RBC Distribution Width CV 13.5 % (11.6-14.6); RBC Distribution Width SD 48.4 fl (35.1-43.9); Red Blood Count 4.29 M/mm3 (4.2-5.4); White Blood Count 6.2 K/mm3 (4.4-11.0)
[2022-09-25 10:42] LABS: ALB/GLOB Ratio 1.2 RATIO (0.9-2.4); AST(SGOT) 13 U/L (15-37); Alanine Aminotransfer ALT/SGPT 16 U/L (13-56); Albumin, Serum 3.5 g/dL (3.2-5.0); Alkaline Phosphatase 116 U/L (45-117); Anion Gap 5 (5-15); BUN 11 mg/dL (7-18); Calcium,Total 8.9 mg/dL (8.5-10.1); Chloride 107 mmol/L (98-107); Creatinine, Serum 0.84 mg/dL (0.55-1.02); EST Glomerular Filtration Rate 78 mL/min (>60); Est Glom Filt Rate - Afr Amer 95 mL/min (>60); Glucose 117 mg/dL (74-106); Potassium 4.3 mmol/L (3.5-5.1); Protein, Total 6.5 g/dL (6.4-8.2); Sodium Level 139 mmol/L (136-145)
== END | disposition home or self-care (01) ==
LOC: MFPLAB 09:26
PROVIDERS: PCP Student in an Organized Health Care Education/Training Program; Visit Provider Physician Assistant
DX: L13.0 Dermatitis herpetiformis (principal)
CPT/HCPCS: 36415; 80053; 85025

== ENCOUNTER → 2022-11-05 | Outpatient (CLI) | payer OTHER, SELFPAY ==
[2022-11-05 12:27] LABS: Absolute Lymphocyte Count 2.27 X10^3/uL (0.83-4.51); Absolute Neutrophil Count 4.2 X10^3/uL (2.0-7.7); Basophil# 0.06 X10^3/uL; Basophil% 0.8 % (0-1); Eosinophil# 0.14 X10^3/uL; Eosinophils% 1.9 % (0-5); Hematocrit 43.2 % (37-47); Hemoglobin 13.9 g/dL (12.0-15.0); Lymphocyte # 2.27 X10^3/ul (0.83-4.51); Lymphocyte % 31.1 % (19-41); Mean Corp Hgb Conc 32.2 g/dL (32-36); Mean Corpuscular Hgb 31.2 pg (27.0-32.0); Mean Corpuscular Volume 96.9 fL (81-99); Mean Platelet Vol. 9.9 fl (6.2-12.0); Monocyte# 0.57 X10^3/uL; Monocyte% 7.8 % (0-10); NRBC Flagged by Analyzer 0 % (0-5); Neutrophil # 4.22 X10^3/uL (2.7-7.7); Platelet Count 317 K/mm3 (150-450); RBC Distribution Width CV 13.4 % (11.6-14.6); Red Blood Count 4.46 M/mm3 (4.2-5.4); White Blood Count 7.3 K/mm3 (4.4-11.0)
[2022-11-05 13:38] LABS: ALB/GLOB Ratio 1.2 RATIO (0.9-2.4); AST(SGOT) 15 U/L (15-37); Alanine Aminotransfer ALT/SGPT 16 U/L (13-56); Albumin, Serum 3.9 g/dL (3.2-5.0); Alkaline Phosphatase 148 U/L (45-117); Anion Gap 7 (5-15); BUN 11 mg/dL (7-18); BUN/Creat Ratio 12.1 RATIO (10-20); Calcium,Total 9.6 mg/dL (8.5-10.1); Chloride 106 mmol/L (98-107); Creatinine, Serum 0.91 mg/dL (0.55-1.02); EST Glomerular Filtration Rate 72 mL/min (>60); Est Glom Filt Rate - Afr Amer 87 mL/min (>60); Globulin 3.3 g/dL (2.2-4.2); Glucose 92 mg/dL (74-106); Potassium 4.4 mmol/L (3.5-5.1); Protein, Total 7.2 g/dL (6.4-8.2); Sodium Level 139 mmol/L (136-145)
== END | disposition home or self-care (01) ==
LOC: MFPLAB 10:39
PROVIDERS: PCP Student in an Organized Health Care Education/Training Program; Visit Provider Physician Assistant
DX: Z79.899 Other long term (current) drug therapy (principal); L13.0 Dermatitis herpetiformis
CPT/HCPCS: 36415; 80053; 85025

== ENCOUNTER 2023-02-05 08:30 | Outpatient (RCR) | payer OTHER, SELFPAY ==
--- NOTE | 2023-01-15 07:38 | HP.OTEVAL ---
Patient's Visit Information DANIELLE MONTE is a 42 year old F, referred to Occupational Therapy by Dr. Lanette Borrego DO, with a diagnosis of left CTS, Cubital tunnel and left lateral epi.. Date of Evaluation: 01/09/23 Occupational Therapist: Lindsay Trujillo, ABIGAIL/Darren, CHT - Subjective This 42 year old female was seen for OT eval with dx. of Left elbow pain, left carpal tunnel syndrome, lateral epicondylitis left elbow, Cubital tunnel syndrome on left. Pt states in Sep. she woke up with pain of left arm - pt states she is wearing brace for her left wrist at night ( pt can not sleep in her braces) pt is leonel wrist brace during the day when performing repetitive motion tasks. 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 pt states she will notice pain mostly after elbow is bent or straight for some time-. pt did have neck sx about 6 years ago level C6/C7. pt would like to decrease her pain and symptoms of tingling to return to performing ADLs and IADLS IND. 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 right digester hand strength with elbow straight 30# - Sensation Thumb: right 2.83 left 2.83 Index: right 2.83 left 2.83 Middle: right 2.83 left 2.83 Ring: right 2.83 left 2.83 Little: right 2.83 left 2.83 Sensation Comments: pt states tingling in all the fingers - mostly LF and RF with positional. left thumb/IF and MF tingle but not numb - Special Tests Elbow Flexion Test - Cubital Tunnel: left positive Tinels - Ulnar n.: left positive Lat Epiconylitis - as named: left positive - Quick DASH-Disab of Arm,Shoulder& Hand Quick DASH Score: 43.1800 - Carpal Tunnel Syndrome Total Score of Symptom & Functional Sections: 39 - Tennis Elbow Tennis Elbow Score: 44 - Goals Goal:: PT will demo an increase in digester hand strength by 20# to increase independent with basic occupations of daily living to return pt to PLOF by D/C. Goal:: pt will demo left elbow ROM to 0/145 without report of pain limiting her end range of motion to increase pts ind with ADLs and IADLs by d.c Goal:: pt will report no pain greater than 2/10 with use of her left UE by d/c. Therapist will demo the ability to palpate left lateral epi without pts report of pain by d/c Goal:: Pt will demo understanding of work/lifting and carry ergonomics to decrease stress on tendons to increase pts independent with ADLs, IADLS and work tasks by d/c. Pt will demo understanding of using supportive bracing 80% of workday/ADLS to decrease stress on tendon origin to allow healing and decrease pain by end of 2nd session. Goal:: pt will demo understanding of ulnar nerve glides and identify positions that increase symptoms of tingling in her LF /RF by end of week 2. pt will report correcting prolonged elbow positions to avoid stress on nerves by end of week 3. - Rehabilitation General Assessment: pt demo with poor sitting posture, shoulders rolled and head forward while sitting- pt demo with limited left elbow ROM and forearm pain with supination. pt limited with all ADLs and IADLs at this time. pt demo symptoms of tingling, pain and limited strength and ROM limiting pts ind. with ADLs and IADLs. Pt would benefit from skilled OT services 2x week for 4 weeks- will transition pt to PRE and strengthening as she tolerates. Therapist discussed POC pt demo understanding and agree to POC. Rehabilitation Potential: Good - Anticipated Interventions A/AAROM/PROM, Strengthening, Triggerpoint Release, Joint Protection/Energy Conservation, Ergonomic Education, Education re assistive Equipment, Education re Diagnosis, Home Program - Visit Plan Frequency: 1-2x /Week Duration: 6 Weeks General Plan: address lateral epi pain. elbow ROM. initiate postural correction and support. nerve glides. PRE at tolerate. work ergo TEXT: Thank you for the opportunity to evaluate your patient. For Medicare and Medicare HMO plans, please review the plan of care and approve it. It will need to be FAXED BACK to us at [phone] for Medicare purposes. Please let me know if there are questions or concerns regarding this plan of care. Physician Signature: Date:
--- NOTE | 2023-02-05 08:54 | HP.OTDCSUM_ITS ---
It has been my pleasure to treat DANIELLE MONTE under orders from Dr. Lanette Borrego, , for the diagnosis of left CTS, Cubital tunnel and left lateral epi. for a total of 3 visit(s). Please see the following information for a summary of their discharge status. 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 pt continues to have positive palpated pain on left lateral epi. depside conservative method and protective linda. for her lateral epi. - at this time rec'd further intervention for left lateral. epi. pt states elbow pain is better- pt is continuing with lat. epi precautions. but pt continues to have left lateral eip pain and positive symptoms- pt feels she would like to pursue a left lateral eip release in future Patient Goals: Decrease Pain, Use Hand/Wrist/Arm Normally Again Goal:: PT will demo an increase in supervisor uranium processing strength by 20# to increase independent with basic occupations of daily living to return pt to OF by D/C. Goal:: pt will demo left elbow ROM to 0/145 without report of pain limiting her end range of motion to increase pts ind with ADLs and IADLs by d.c Goal:: pt will report no pain greater than 2/10 with use of her left UE by d/c. Therapist will demo the ability to palpate left lateral epi without pts report of pain by d/c Goal:: Pt will demo understanding of work/lifting and carry ergonomics to decrease stress on tendons to increase pts independent with ADLs, IADLS and work tasks by d/c. Pt will demo understanding of using supportive bracing 80% of workday/ADLS to decrease stress on tendon origin to allow healing and decrease pain by end of 2nd session. Goal:: pt will demo understanding of ulnar nerve glides and identify positions that increase symptoms of tingling in her LF /RF by end of week 2. pt will report correcting prolonged elbow positions to avoid stress on nerves by end of week 3. Plan: D/C Discharge Comments: pt d/c and rec/d to continue with her conservative treatment HEP for her CTS until her up coming sx. in regards to her left lateral epi. pt to continue with bandit brace- wrist brace night elbow brace and protective linda. -. as pt has made little gains in decreasing symptoms of left lateral.epi. rec. pt to return to for further intervention. pt voice question if would do latera eip release with her up coming CTR- advised pt to contact office/ for answer. If there are questions or concerns regarding this patient's occupational therapy, please fell free to call me at [phone]. Thank you for the referral of this patient. Sincerely, Lindsay Trujillo, OTR/L, CHT
== END 2023-02-05 15:07 | disposition home or self-care (01) ==
LOC: OT 08:30
PROVIDERS: PCP Student in an Organized Health Care Education/Training Program; Referring Provider Orthopaedic Surgery; Visit Provider Orthopaedic Surgery
DX: G56.02 Carpal tunnel syndrome, left upper limb; M77.12 Lateral epicondylitis, left elbow; G56.22 Lesion of ulnar nerve, left upper limb
CPT/HCPCS: 97035; 97110; 97140; 97166; 97530

== ENCOUNTER 2023-05-17 14:30 | Emergency (ER) | payer OTHER, SELFPAY ==
[2023-05-17 14:31] VITALS: BP 186/110; PULSE 103; RESP 20; TEMP 36.3; O2SAT 98; BMI 38.8
--- NOTE | 2023-05-17 14:39 | EDS_ITS ---
HPI History of Present Illness Chief Complaint: Shortness of Breath [facility] Medical History (Updated 05/17/23 @ 15:[address] Kayode Cunningham DO) Allergies Carpal tunnel syndrome Contusion of other part of head, sequela Fall as cause of accidental injury at home as place of occurrence GERD (gastroesophageal reflux disease) Heart murmur History of blood clots HISTORY OF NECK DECOMPRESSION Hypertrophic scar Plantar fasciitis Unspecified open wound of left cheek and temporomandibular area, sequela Unspecified open wound of lip, sequela Vitamin D deficiency Home Medications albuterol sulfate 90 mcg/actuation aerosol inhaler 1 puff inhalation Q4H PRN PRN sob/wheezing 12/30/21 [History Last Taken Unknown] atorvastatin 10 mg tablet 10 mg PO QHS 12/30/21 [History Last Taken Unknown] cholecalciferol (vitamin D3) 1,250 mcg (50,000 unit) capsule 50,000 unit PO SUWE 12/30/21 [History Last Taken Unknown] dapsone 25 mg tablet 25 mg PO DAILY 12/30/21 [History Last Taken Unknown] duloxetine 20 mg capsule,delayed release 20 mg PO DAILY 12/30/21 [History Last Taken Unknown] gabapentin 300 mg capsule 600 mg PO TID 12/30/21 [History Last Taken Unknown] lansoprazole 30 mg capsule,delayed release 30 mg PO DAILY 12/30/21 [History Last Taken Unknown] naproxen 500 mg tablet 500 mg PO BID #14 tabs 12/30/21 [Rx Last Taken Unknown] albuterol sulfate 90 mcg/actuation breath activated powder inhaler 1 inh inhalation Q6H PRN shortness of breath or wheezing #1 ea 05/17/23 [Rx Last Taken Unknown] prednisone 50 mg tablet 50 mg PO DAILY 5 days #5 tabs 05/17/23 [Rx Last Taken Unknown] Allergy/AdvReac Type Severity Reaction Status Date / Time codeine AdvReac Nausea/Vom/ Verified 05/17/23 14:31 Diarrhea Family History Mother Asthma Arthritis Diabetes Hypertension Father Arthritis Hypertension Grandmother Arthritis Diabetes Hypertension Surgical History H/O elbow surgery H/O excision of lamina of cervical vertebra for decompression of spinal cord History of History of D&C History of endometrial ablation History of fasciotomy Social History Smoking Status: Current every day smoker tobacco type: cigarettes counseling given: provider counseling and counseling >10 minutes alcohol intake: current substance use type: does not use additional social history: Does not take aspirin Does take ibuprofen as needed EXAM Physical Exam Const Vital Signs: 05/17/23 14:31 05/17/23 14:52 05/17/23 15:37 Temperature 97.4 F L Temperature Source Temporal Pulse Rate 103 H 75 Respiratory Rate 20 H 13 Respiratory Effort Short of Breath Respiratory Depth Normal Respiratory Pattern Normal Normal Blood Pressure 186/110 H Blood Pressure Mean 135 Pulse Ox 98 Oxygen Delivery Method Room Air Room Air 05/17/23 15:37 05/17/23 15:53 Temperature Temperature Source Pulse Rate 68 Respiratory Rate 22 H Respiratory Effort Respiratory Depth Respiratory Pattern Blood Pressure 167/94 H Blood Pressure Mean Pulse Ox 96 92 Oxygen Delivery Method Room Air MDM MDM MDM Narrative Medical decision making narrative: HISTORY OF PRESENT ILLNESS: 43-year-old female here with shortness of breath cough. Notes has been going on for 3 to 4 days. Notes history of exercise-induced asthma but notes she feels chest tightness and wheezing at rest at this point. Denies fever. 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 Denies any bleeding diathesis. Denies any chest pain. Denies any leg swelling. Denies any volume loss such as vomiting or diarrhea. The patient denies recent surgery in the last 4 weeks or immobilization in the last 3 days, denies previous diagnosis of DVT or PE, hemoptysis, unilateral leg swelling or malignancy with treatment the last 6 months. No estrogen use noted. REVIEW OF SYSTEMS: Pertinent positives: Shortness of breath, cough Pertinent negatives: Syncope, chest pain, PHYSICAL EXAM: Nursing triage notes reviewed, Vital signs reviewed Constitutional: please see mdm HENT: MMM Eyes: Pupils equal round and reactive to light, Extraocular muscles intact Neck: No stridor, no JVD, full neck ROM Lungs: Clear to auscultation, fine and expiratory wheezing noted bilaterally. No increased work of breathing, no conversational dyspnea, no accessory muscle use, no nasal flaring. No respiratory distress noted Heart: Regular rate and rhythm, No murmurs, No rubs and No gallops, 2+ distal pulses (radial, femoral, posterior tibial) in all extremities Abdomen: Soft, there is no tenderness, rigidity, rebound or guarding, no obvious peritoneal signs, no palpable pulsatile abdominal masses, no auscultated abdominal bruit : No CVAT Extremities: No edema Neuro: No focal neurological deficits, cranial nerves II through XII intact, 5/5 strength in all extremities. Intact sensation to light touch in all extremities, 2+ reflexes bilateral patella tendons. Normal gait. No ataxia. Skin: No rash or lesions noted MEDICAL DECISION MAKING: Chief Complaint: Shortness of breath, cough External records reviewed: No recent echocardiograms noted in the chart, chest x-ray from 2021 shows no evidence of pneumonia or heart failure Factors affecting care: Asthma Social determinants of health: Current everyday smoker History obtained from others: The patient's Consults: none ALL IMAGES (IF OBTAINED) HAVE BEEN PERSONALLY REVIEWED AND INTERPRETED BY MYSELF. EKG with normal sinus rhythm, normal axis, no intervals, no STEMI MDM Narrative: THe pt was initially hemodynamically stable, afebrile, nontoxic-appearing. Exam consistent with obstructive lung disease. There is no stigmata of VTE. Patient does note she is currently smoking. I considered the following differential diagnosis: Pneumonia, viral infection, PE, anemia, arrhythmia, myocardial ischemia, asthma or COPD exacerbation I obtained a broad lab and imaging work-up to further elucidate the etiology of the patient's complaints. Given wheezing on given. Asthma/COPD treatment in form of DuoNebs and prednisone. Patient's chest x-ray was personally read and reviewed by myself. It showed no evidence of obvious pneumonia, pulmonary edema, pneumothorax or cardiomegaly. Patient's EKG was nonischemic and not arrhythmia genic. COVID and flu test was negative. The patient and/or family, caregivers express understanding. The patient and/or family, caregivers agrees with the plan. Shared decision making: I will have a discussion with the patient and or visitors regarding risk/benefits of further testing or admission. They will be made aware of of the risk/benefits inherent in this decision they will be given the opportunity to voice understanding. Total critical care time today provided was at least 0 [] minutes. This excludes separately billable procedures. Critical care time (if documented) is secondary to the patient having high probability of clinically significant/life threatening deterioration in the patient's condition which required my urgent intervention. Lab Data Attestation: I reviewed the patient's lab results. Lab results narrative: CBC without leukocytosis, severe anemia, no thrombocytopenia. BMP without evidence of significant electrolyte abnormalities, no anion gap, no acute kidney injury. Troponin is negative, no evidence of myocardial ischemia BNP within normal limits no evidence of myocardial stretch. Labs: Laboratory Results - last 24 hr 05/17/23 14:50 WBC 7.3 RBC 4.26 Hgb 14.4 Hct 42.4 MCV 99.5 H MCH 33.8 H MCHC 34.0 RDW Std Deviation 50.6 H RDW Coeff of Jose 13.8 Plt Count 266 MPV 9.4 Immature Gran % (Auto) 0.300 Neut % (Auto) 61.0 Lymph % (Auto) 26.7 Cotton % (Auto) 9.9 Eos % (Auto) 1.6 Baso % (Auto) 0.5 Absolute Neuts (auto) 4.5 Absolute Lymphs (auto) 1.95 Nucleated RBC % 0 Sodium 139 Potassium 3.8 Chloride 107 Carbon Dioxide 25.0 Anion Gap 7 BUN 6 L Creatinine 0.79 Estim Creat Clear Calc 89.29 Est GFR (MDRD) Af Amer 102 Est GFR (MDRD) Non-Af 84 BUN/Creatinine Ratio 7.6 L Glucose 116 H Calcium 9.4 Troponin I High Sens 4 B-Natriuretic Peptide 26.6 Radiography Chest X-Ray - ED: Read by ED Physician Diagnostic Testing: Clinical Impression(s) from Imaging Studies Chest X-Ray 05/17/23 15:15 IMPRESSION: No radiographic evidence of acute cardiopulmonary disease and unchanged when compared to 12/30/2021. Electronically Signed: Seferino Galindo MD at 15:41 EDT , Discharge Plan Triage Chief Complaint: Shortness of Breath ED Provider: Kayode Cunningham Dx/Rx/DC Orders Clinical Impression: Asthma exacerbation, Viral URI with cough Instructions: Asthma Prescriptions: New prednisone 50 mg tablet 50 mg PO DAILY 5 Days Qty: 5 0RF albuterol sulfate 90 mcg/actuation aerosol powdr breath activated 1 inh inhalation Q6H PRN (Reason: shortness of breath or wheezing) Qty: 1 5RF No Action atorvastatin 10 mg tablet 10 mg PO QHS Patient Comments: take 1 tablet by mouth daily at bedtime for cholesterol lansoprazole 30 mg capsule,delayed release(DR/EC) 30 mg PO DAILY Patient Comments: take 1 capsule by mouth once daily , 1/2 HOUR BEFORE BREAKFAST dapsone 25 mg tablet 25 mg PO DAILY Patient Comments: take 1 tablet by mouth once daily for 14 days Rx Instructions: x14 days, started 12/28/2021 gabapentin 300 mg capsule 600 mg PO TID Patient Comments: take 2 capsules by mouth three times a day albuterol sulfate 90 mcg/actuation HFA aerosol inhaler 1 puff INHALATION Q4H PRN PRN (Reason: sob/wheezing) Patient Comments: inhale 1 puff by mouth and INTO THE LUNGS every 4 hours if needed duloxetine 20 mg capsule,delayed release(DR/EC) 20 mg PO DAILY Patient Comments: take 1 capsule by mouth once daily cholecalciferol (vitamin D3) 1,250 mcg (50,000 unit) capsule 50,000 unit PO SUWE Patient Comments: take 1 capsule by mouth ONCE EVERY WEEK naproxen 500 MG tablet 500 mg PO BID Qty: 14 0RF Stand Alone Forms: ED Work / School Excuse Primary Care Provider: Juve Jiang Referrals: Juve Jiang DO [Primary Care Provider] - Activity Restrictions/Additional Instructions: Thank you for trusting us with your care today! Please take prednisone as prescribed. Please use albuterol as needed for symptomatic relief. Please return to the emergency department if your symptoms change or worsen. Specifically develop worsening shortness of breath, lose consciousness, develop chest pain, you develop leg swelling. Please follow with your primary care physician for further outpatient evaluation and management. Disposition Disposition: Home, Self Care Discharge Date/Time: 05/17/23 16:10
[2023-05-17 14:52] VITALS: O2SAT 96
--- NOTE | 2023-05-17 14:54 | EKG12_ITS ---
Test Reason : LIGHTHEAD/SOB Blood Pressure : / mmHG Vent. Rate : 070 BPM Atrial Rate : 070 BPM P-R Int : 126 ms QRS Dur : 078 ms QT Int : 394 ms P-R-T Axes : 042 027 048 degrees QTc Int : 425 ms Sinus rhythm with marked sinus arrhythmia Otherwise normal ECG Confirmed by FREDA FORRESTER, CASSIDY ([id number]), international editorial producer MURTAZA VERA ([id number]) on 05/21/2023 8:39:29 AM Referred By: TOO Confirmed By:ODILON BARBA MD
[2023-05-17 15:05] LABS: Absolute Lymphocyte Count 1.95 X10^3/uL (0.83-4.51); Absolute Neutrophil Count 4.5 X10^3/uL (2.0-7.7); Basophil# 0.04 X10^3/uL; Basophil% 0.5 % (0-1); Eosinophil# 0.12 X10^3/uL; Eosinophils% 1.6 % (0-5); Hematocrit 42.4 % (37-47); Hemoglobin 14.4 g/dL (12.0-15.0); Lymphocyte # 1.95 X10^3/ul (0.83-4.51); Lymphocyte % 26.7 % (19-41); Mean Corpuscular Hgb 33.8 pg (27.0-32.0); Mean Corpuscular Volume 99.5 fL (81-99); Mean Platelet Vol. 9.4 fl (6.2-12.0); Monocyte# 0.72 X10^3/uL; Monocyte% 9.9 % (0-10); NRBC Flagged by Analyzer 0 % (0-5); Neutrophil # 4.45 X10^3/uL (2.7-7.7); Platelet Count 266 K/mm3 (150-450); RBC Distribution Width CV 13.8 % (11.6-14.6); RBC Distribution Width SD 50.6 fl (35.1-43.9); Red Blood Count 4.26 M/mm3 (4.2-5.4); White Blood Count 7.3 K/mm3 (4.4-11.0)
--- NOTE | 2023-05-17 15:15 | RAD_ITS ---
EXAM: XR CHEST, 2 VIEWS CLINICAL INDICATION: SOB TECHNIQUE: Frontal and lateral views of the chest. COMPARISON: 12/30/2021. FINDINGS: LUNGS AND PLEURAL SPACES: Unremarkable. No consolidation or edema. No pneumothorax. No effusion. HEART: Unremarkable. Cardiac silhouette not enlarged. MEDIASTINUM: Central airways and mediastinal contour are unremarkable. BONES/JOINTS: Unremarkable. SOFT TISSUES: Unremarkable. RAD/Chest PA and Lateral IMPRESSION: No radiographic evidence of acute cardiopulmonary disease and unchanged when compared to 12/30/2021. Electronically Signed: Seferino Galindo MD at 15:41 EDT ,
[2023-05-17 15:24] LABS: Anion Gap 7 (5-15); BUN 6 mg/dL (7-18); BUN/Creat Ratio 7.6 RATIO (10-20); Calcium,Total 9.4 mg/dL (8.5-10.1); Chloride 107 mmol/L (98-107); Creatinine, Serum 0.79 mg/dL (0.55-1.02); EST Glomerular Filtration Rate 84 mL/min (>60); Est Glom Filt Rate - Afr Amer 102 mL/min (>60); Estimated Creatinine Clearance 89.29 ml/min; Glucose 116 mg/dL (74-106); Potassium 3.8 mmol/L (3.5-5.1); Sodium Level 139 mmol/L (136-145); Troponin-I HS 4 pg/mL (3.0-54.0)
[2023-05-17 15:29] LABS: BNP,B-Type NATRIURETIC PEPTIDE 26.6 pg/mL (0-100)
[2023-05-17] MEDS: Ipratropium/Albuterol Sulfate 3 ML AMPUL.NEB INHALATION (15:34)
[2023-05-17 15:37] VITALS: PULSE 75; RESP 13; O2SAT 96
[2023-05-17 15:53] VITALS: BP 167/94; PULSE 68; RESP 22; O2SAT 92
[2023-05-17] MEDS: predniSONE 20 MG Tablet 40 MG PO (16:04)
== END 2023-05-17 16:10 | disposition home or self-care (01) ==
PROVIDERS: Emergency Provider Emergency Medicine; PCP Student in an Organized Health Care Education/Training Program; Visit Provider Emergency Medicine
DX: J45.901 Unspecified asthma with (acute) exacerbation (principal); F17.210 Nicotine dependence, cigarettes, uncomplicated; K21.9 Gastro-esophageal reflux disease without esophagitis; J06.9 Acute upper respiratory infection, unspecified; R05.9 Cough, unspecified
CPT/HCPCS: 71046; 80048; 83880; 84484; 85025; 87428; 93005; 94640; 99285

== ENCOUNTER → 2023-07-16 | Outpatient (CLI) | payer OTHER, SELFPAY ==
--- NOTE | 2023-07-16 | LES_PTH ---
PATIENT: DANIELLE MONTE LOC: [facility] U#:[id number] AGE/SX: 43/F ROOM: RE07/16/[address]: DOMINIC MILLER MD : 1980 BED: DIS: 07/16/2023 SPEC #: [id number] RECD: 07/16/23 14:51 STATUS: ROSALIA KEIKO #: [id number] NICOLE: 07/16/23 00:[address]: DOMINIC MILLER DEPT: SURGICAL PATHOLOGY RECD BY: Harsha Evans ENTERED: 07/17/23 08:06 SP TYPE: Lesion OTHR DR: Dr. Juve Jiang DO Tissues: Oral cavity, NOS Procedures: Special Stain Group I Surgery Specimen Level IV GMS Stain (control) HEADER OPERATION: Punch biopsy of left trigone PRE-OP DIAGNOSIS: Left trigone ulceration with erythema 3 x 3 mm TISSUE SUBMITTED: Left trigone MICROSCOPIC DIAGNOSIS Left trigone, punch biopsy: Acute and chronic inflammation and granulation tissue reaction. Negative for atypia or malignancy. See comment. CASSANDRA:praneeth 07/20/2023 COMMENT Special stain for fungi is negative for organisms; matched control is appropriate. Clinical correlation and appropriate follow up are necessary. MICROSCOPIC DESCRIPTION Slides are reviewed. GROSS DESCRIPTION Received in fixative is one container labeled with the patient's name and designated left trigone. The specimen consists of a piece of de la cruz mucosal tissue measuring 0.5 x 0.4 x 0.2 cm. The specimen is inked and submitted entirely in one cassette. / CASSANDRA:praneeth 07/17/2023 TC:2 CPT: 22221, 90263
== END | disposition home or self-care (01) ==
LOC: LABSPEC 15:01
PROVIDERS: PCP Student in an Organized Health Care Education/Training Program; Referring Provider Dentist Oral and Maxillofacial Surgery; Visit Provider Dentist Oral and Maxillofacial Surgery
DX: Z12.9 Encounter for screening for malignant neoplasm, site unspecified (principal)
CPT/HCPCS: 88305; 88312

== ENCOUNTER → 2024-02-02 | Outpatient (CLI) | payer OTHER, SELFPAY ==
--- NOTE | 2024-02-02 07:28 | US_ITS ---
STUDY: ABDOMINAL ULTRASOUND - ELASTOGRAPHY REASON FOR VISIT: Female, 44 years old. Fatty infiltration of the liver. Elevated liver function tests. TECHNIQUE: Liver stiffness measurements were obtained on a Solavei RS 85 ultrasound machine using a CA 1-7 probe following the SRU guidelines. 3 measurements were obtained using a 2-D-SWE method. TheIQR/M was 12% suggesting a quality data set. TECHNICAL QUALITY: Adequate. COMPARISON: None. FINDINGS: Liver: There is no demonstrated mass lesion. Median liver stiffness measured 8.4 kPa. Abdomen: There is no demonstrated mass lesion. US/Elastography Parenchyma/Organ IMPRESSION: Liver stiffness measures 8.4 kPa compatible with F2-F3 (Mild to moderate liver fibrosis) Metavir score. Electronically Signed: Radhames Singh MD at 8:43 EDT ,
== END | disposition home or self-care (01) ==
PROVIDERS: PCP Student in an Organized Health Care Education/Training Program; Referring Provider Nurse Practitioner Family; Visit Provider Nurse Practitioner Family
DX: R74.8 Abnormal levels of other serum enzymes (principal)
CPT/HCPCS: 76981

== ENCOUNTER 2024-05-11 09:18 | Observation (INO) | payer SELFPAY ==
[2024-05-11] VITALS (13 sets, daily range): BP systolic 123–160; BP diastolic 77–94; PULSE 56–76; RESP 14–18; TEMP 36.4–36.6; O2SAT 85–98; BMI 40.6
--- NOTE | 2024-05-11 09:21 | ED.VIS.DYS ---
HPI History of Present Illness Chief Complaint: Shortness of Breath [facility] Medical History (Updated 05/11/24 @ 13:[address] Angelo Duncan MD) Hypertrophic scar Fall as cause of accidental injury at home as place of occurrence Unspecified open wound of left cheek and temporomandibular area, sequela Unspecified open wound of lip, sequela Contusion of other part of head, sequela Vitamin D deficiency Heart murmur GERD (gastroesophageal reflux disease) History of blood clots Allergies HISTORY OF NECK DECOMPRESSION Plantar fasciitis Carpal tunnel syndrome Home Medications ?Medication ?Instructions ?Recorded ?Last Taken ?Type albuterol sulfate 90 mcg/actuation 1 puff inhalation Q4H PRN PRN 12/30/21 Unknown History aerosol inhaler sob/wheezing atorvastatin 10 mg tablet 10 mg PO QHS 12/30/21 Unknown History cholecalciferol (vitamin D3) 1,250 50,000 unit PO SUWE 12/30/21 Unknown History mcg (50,000 unit) capsule dapsone 25 mg tablet 100 mg PO DAILY 12/30/21 Unknown History duloxetine 20 mg capsule,delayed 60 mg PO DAILY 12/30/21 Unknown History release gabapentin 300 mg capsule 600 mg PO TID 12/30/21 Unknown History lansoprazole 30 mg capsule,delayed 30 mg PO DAILY 12/30/21 Unknown History release albuterol sulfate 90 mcg/actuation 1 inh inhalation Q6H PRN shortness 05/17/23 Unknown Rx breath activated powder inhaler of breath or wheezing #1 ea fluticasone fur. 200 mcg-umeclid 1 ea inhalation DAILY 05/11/24 Unknown History 62.5 mcg-vilant 25 mcg inhalat.powder (Trelegy Ellipta) levothyroxine 88 mcg tablet 88 mcg PO DAILY 05/11/24 Unknown History meloxicam 15 mg tablet 15 mg PO DAILY 05/11/24 Unknown History metoprolol succinate 25 mg 25 mg PO QHS blood pressure 05/11/24 Unknown History tablet,extended release 24 hr montelukast 10 mg tablet 10 mg PO QHS 05/11/24 Unknown History Allergy/AdvReac Type Severity Reaction Status Date / Time codeine AdvReac Nausea/Vom/ Verified 05/11/24 09:18 Diarrhea Family History Mother Asthma Arthritis Diabetes Hypertension Father Arthritis Hypertension Grandmother Arthritis Diabetes Hypertension Surgical History History of fasciotomy H/O excision of lamina of cervical vertebra for decompression of spinal cord History of D&C History of endometrial ablation H/O elbow surgery History of Social History Smoking Status: Current every day smoker tobacco type: cigarettes alcohol intake: current substance use type: does not use additional social history: Does not take aspirin Does take ibuprofen as needed EXAM Physical Exam Const Vital Signs: 05/11/24 09:18 05/11/24 09:25 05/11/24 09:44 Temperature 97.9 F Temperature Source Temporal Pulse Rate 76 Respiratory Rate 18 Respiratory Effort Short of Breath Respiratory Depth Shallow Blood Pressure 160/94 H Blood Pressure Mean 116 Pulse Ox 91 85 Oxygen Delivery Method Room Air Room Air Nasal Cannula Oxygen Flow Rate (L/min) 2 05/11/24 11:18 05/11/24 12:47 Temperature Temperature Source Pulse Rate 57 L Respiratory Rate 14 Respiratory Effort Respiratory Depth Blood Pressure 131/77 H Blood Pressure Mean 95 Pulse Ox 93 97 Oxygen Delivery Method Nasal Cannula Nasal Cannula Oxygen Flow Rate (L/min) 2 2 MDM MDM MDM Narrative Medical decision making narrative: HISTORY OF PRESENT ILLNESS: 44-year-old female presents concern for shortness of breath. She states her symptoms began on Thursday. She endorses dyspnea on exertion. She denies lower extremity edema or orthopnea. Denies any wheezing. She notes she still smokes. She denies any cough fever chills. She notes occasional blood in her stool but none recently. Denies taking blood thinners. She denies any sick contacts. She denies any chest pain or palpitations. Denies any vomiting or diarrhea. In addition to shortness of breath she also endorses feeling fatigued and at times foggy. She denies any focal numbness weakness or loss sensation slurred speech or facial drooping The patient denies recent surgery in the last 4 weeks or immobilization in the last 3 days, denies previous diagnosis of PE, hemoptysis, unilateral leg swelling or malignancy with treatment the last 6 months or palliative. No estrogen use noted. REVIEW OF SYSTEMS: Pertinent positives: Shortness of breath Pertinent negatives: CP, leg swelling, fever PHYSICAL EXAM: Nursing triage notes reviewed, Vital signs reviewed Constitutional: please see mdm HENT: MMM Eyes: Pupils equal round and reactive to light, Extraocular muscles intact Neck: No stridor, no JVD, full neck ROM Lungs: Coarse breath sounds throughout, conversational dyspnea, patient did not have increased work of breathing or conversational dyspnea at rest however with minimal exertion (sitting up) the patient became more dyspneic, despite conversational dyspnea, tachypnea and became hypoxic to 84%. Heart: Regular rate and rhythm, No murmurs, No rubs and No gallops, 2+ distal pulses (radial, femoral, posterior tibial) in all extremities Abdomen: Soft, there is no tenderness, rigidity, rebound or guarding, no obvious peritoneal signs, no palpable pulsatile abdominal masses, no auscultated abdominal bruit : No CVAT Extremities: No edema Neuro: Alert and oriented x3, neuro exam at baseline, cranial nerves II through XII are intact. No pain with extraocular muscle movement. There is negative test of skew. 5 of 5 strength in upper and lower extremities in flexion extension. Intact sensation to light touch in upper and lower extremity dermatomes. No truncal or extremity ataxia. No dysdiadochokinesia. Normal gait. 2+ reflexes in upper and lower extremities. No meningeal signs. Negative Babinski. NIH of 0. Skin: No rash or lesions noted MEDICAL DECISION MAKING: Chief Complaint: Shortness of breath External records reviewed: Reviewed prior ED note Factors affecting care: Asthma, tobacco abuse, DVT Social determinants of health: Tobacco abuse History obtained from others: The patient's Consults: Internal medicine [facility] Narrative: Patient was initially I considered the following differential diagnosis: Asthma exacerbation, pneumonia, anemia, electrolyte disturbance, arrhythmia, ACS, PE Patient was noted to have exertional hypoxia with minimal exertion (sitting up in bed). She was placed on 2 L nasal cannula with a new oxygen requirement. Labs images were ordered to rule out the after mentioned differential diagnosis including a CTA of the chest rule out PE. The patient does not have any wheezing to suggest asthma exacerbation as such I do not treat the patient empirically with breathing treatments or steroids. ALL IMAGES (IF OBTAINED) HAVE BEEN PERSONALLY REVIEWED AND INTERPRETED BY MYSELF. EKG with normal sinus rhythm, normal axis, no intervals, no evidence of STEMI CT of the chest shows no evidence of pulm embolism, pneumonia or heart failure CBC with no leukocytosis, mild anemia, no thrombocytopenia BMP without evidence of significant electrolyte abnormalities, no anion gap, no acute kidney injury. High-sensitivity troponin is negative, no evidence of myocardial ischemia BNP within normal limits suggestive of no heart failure COVID and flu negative Given patient's new onset hypoxia she is not appropriate for discharge home. Discussed this with the hospitalist Dr. Duncan. Dr. Cunningham did evaluate patient in the emergency department agree with hospitalization he recommended admission to the [facility] ops The patient and/or family, caregivers express understanding. The patient and/or family, caregivers agrees with the plan. Shared decision making: I will have a discussion with the patient and or visitors regarding risk/benefits of further testing or admission. They will be made aware of of the risk/benefits inherent in this decision they will be given the opportunity to voice understanding. Total critical care time today provided was at least 0 minutes. This excludes separately billable procedures. Critical care time (if documented) is secondary to the patient having high probability of clinically significant/life threatening deterioration in the patient's condition which required my urgent intervention. Impression: 1. Dyspnea 2. History of Asthma 3. Hypoxia Dispo: admit This note was generated with [employer] dictation software. It may contain incorrect words, spelling, and punctuation that were not noted in review of the chart prior to signing. Lab Data Labs: Laboratory Results - last 24 hr 05/11/24 09:42 WBC 7.6 RBC 3.78 L Hgb 13.2 Hct 40.1 MCV 106.1 H MCH 34.9 H MCHC 32.9 RDW Std Deviation 58.1 H RDW Coeff of Jose 14.9 H Plt Count 337 MPV 9.5 Immature Gran % (Auto) 0.700 Neut % (Auto) 61.7 Lymph % (Auto) 25.9 [place]atte % (Auto) 9.0 Eos % (Auto) 2.2 Baso % (Auto) 0.5 Absolute Neuts (auto) 4.7 Absolute Lymphs (auto) 1.98 Nucleated RBC % 0 Sodium 137 Potassium 3.8 Chloride 106 Carbon Dioxide 24.0 Anion Gap 7 BUN 10 Creatinine 0.93 Estim Creat Clear Calc 102.41 Est GFR (MDRD) Af Amer 84 Est GFR (MDRD) Non-Af 70 BUN/Creatinine Ratio 10.8 Glucose 135 H Calcium 9.3 Troponin I High Sens 3 B-Natriuretic Peptide 23.0 Radiography Diagnostic Testing: Clinical Impression(s) from Imaging Studies Chest CTA 05/11/24 09:37 IMPRESSION: Normal CTA chest examination, without a demonstrated pulmonary embolism or arterial dissection. Electronically Signed: Radhames Singh MD at 10:17 EDT , Discharge Plan Triage Chief Complaint: Shortness of Breath ED Provider: Kayode Cunningham Dx/Rx/DC Orders Prescriptions: No Action atorvastatin 10 mg tablet 10 mg PO QHS Patient Comments: take 1 tablet by mouth daily at bedtime for cholesterol lansoprazole 30 mg capsule,delayed release(DR/EC) 30 mg PO DAILY Patient Comments: take 1 capsule by mouth once daily , 1/2 HOUR BEFORE BREAKFAST dapsone 25 mg tablet 100 mg PO DAILY Patient Comments: take 1 tablet by mouth once daily for 14 days Rx Instructions: x14 days, started 12/28/2021 gabapentin 300 mg capsule 600 mg PO TID Patient Comments: take 2 capsules by mouth three times a day albuterol sulfate 90 mcg/actuation HFA aerosol inhaler 1 puff INHALATION Q4H PRN PRN (Reason: sob/wheezing) Patient Comments: inhale 1 puff by mouth and INTO THE LUNGS every 4 hours if needed duloxetine 20 mg capsule,delayed release(DR/EC) 60 mg PO DAILY Patient Comments: take 1 capsule by mouth once daily cholecalciferol (vitamin D3) 1,250 mcg (50,000 unit) capsule 50,000 unit PO SUWE Patient Comments: take 1 capsule by mouth ONCE EVERY WEEK albuterol sulfate 90 mcg/actuation aerosol powdr breath activated 1 inh inhalation Q6H PRN (Reason: shortness of breath or wheezing) Qty: 1 5RF meloxicam 15 mg tablet 15 mg PO DAILY levothyroxine 88 mcg tablet 88 mcg PO DAILY montelukast 10 mg tablet 10 mg PO QHS metoprolol succinate 25 mg tablet extended release 24 hr 25 mg PO QHS Trelegy Ellipta 200-62.5-25 mcg blister with device 1 ea INHALATION DAILY Primary Care Provider: Juve Jiang Referrals: Juve Jiang DO [Primary Care Provider] - Print Language: Maltese
--- NOTE | 2024-05-11 09:37 | CT_ITS ---
STUDY: CTA CHEST REASON FOR EXAM: Female, 44 years old. SOB, hypoxia, hx of DVT RADIATION DOSAGE (If Supplied By Facility): CTDIvol = ( 11.60 ) mGy, DLP = ( 537.77 ) mGycm TECHNIQUE: The examination was performed with the intravenous administration of IV 100mL Isovue-370. Post-processing of the angiographic images was performed, with multiplanar reformation and 3D reconstruction. Individualized dose optimization techniques were used for this CT. COMPARISON: None. FINDINGS: Small bilateral benign appearing axillary lymph nodes. Normal enhancement of the main pulmonary artery and right and left pulmonary arteries. Normal enhancement of the bilateral peripheral pulmonary arteries. There is no demonstrated pulmonary embolism. Normal thoracic aorta and visualized great vessels. There is no demonstrated aortic dissection. Normal heart and pericardium. Normal mediastinum. Normal hilar regions. Normal visualized trachea and bronchi. The lungs are well expanded. Normal pulmonary parenchyma. Normal pleura. Normal chest wall structures. Normal osseous structures. Fatty infiltration of the liver. Small hiatal hernia. CT/CTA Chest W/WO Contrast IMPRESSION: Normal CTA chest examination, without a demonstrated pulmonary embolism or arterial dissection. Electronically Signed: Radhames Singh MD at 10:17 EDT ,
--- NOTE | 2024-05-11 09:37 | EKG12_ITS ---
Test Reason : SOB/CHEST TIGHTNESS Blood Pressure : / mmHG Vent. Rate : 071 BPM Atrial Rate : 071 BPM P-R Int : 128 ms QRS Dur : 078 ms QT Int : 400 ms P-R-T Axes : 033 014 047 degrees QTc Int : 434 ms Normal sinus rhythm Normal ECG Confirmed by FREDA FORRESTER, CASSIDY ([id number]), map editor KELVIN STRAUSS ([id number]) on 05/17/2024 1:36:06 PM Referred By: TOO Confirmed By:ODILON BARBA MD
[2024-05-11 09:54] LABS: Absolute Lymphocyte Count 1.98 X10^3/uL (0.83-4.51); Absolute Neutrophil Count 4.7 X10^3/uL (2.0-7.7); Basophil# 0.04 X10^3/uL; Basophil% 0.5 % (0-1); Eosinophil# 0.17 X10^3/uL; Eosinophils% 2.2 % (0-5); Hematocrit 40.1 % (37-47); Hemoglobin 13.2 g/dL (12.0-15.0); Lymphocyte # 1.98 X10^3/ul (0.83-4.51); Lymphocyte % 25.9 % (19-41); Mean Corp Hgb Conc 32.9 g/dL (32-36); Mean Corpuscular Hgb 34.9 pg (27.0-32.0); Mean Corpuscular Volume 106.1 fL (81-99); Mean Platelet Vol. 9.5 fl (6.2-12.0); Monocyte# 0.69 X10^3/uL; NRBC Flagged by Analyzer 0 % (0-5); Neutrophil # 4.71 X10^3/uL (2.7-7.7); Neutrophil % 61.7 % (47-70); Platelet Count 337 K/mm3 (150-450); RBC Distribution Width CV 14.9 % (11.6-14.6); RBC Distribution Width SD 58.1 fl (35.1-43.9); Red Blood Count 3.78 M/mm3 (4.2-5.4); White Blood Count 7.6 K/mm3 (4.4-11.0)
[2024-05-11 10:08] LABS: Anion Gap 7 (5-15); BUN 10 mg/dL (7-18); BUN/Creat Ratio 10.8 RATIO (10-20); Calcium,Total 9.3 mg/dL (8.5-10.1); Chloride 106 mmol/L (98-107); Creatinine, Serum 0.93 mg/dL (0.55-1.02); EST Glomerular Filtration Rate 70 mL/min (>60); Est Glom Filt Rate - Afr Amer 84 mL/min (>60); Estimated Creatinine Clearance 102.41 ml/min; Glucose 135 mg/dL (74-106); Potassium 3.8 mmol/L (3.5-5.1); Sodium Level 137 mmol/L (136-145); Troponin-I HS 3 pg/mL (3.0-54.0)
--- NOTE | 2024-05-11 12:51 | HP.PCM.HOS_ITS ---
HPI - General General Date of Admission: 05/11/24 Date of Service: 05/11/24 Chief Complaint: Shortness of breath generalized weakness numbness not feeling good for 3 days HPI Narrative DANIELLE MONTE, is a 44 F with history of asthma on Trelegy and albuterol as needed came to ED with shortness of breath, chest tightness on and off and generalized feeling weak some confusion and unsteady feet since Thursday for last 3 days. No fever. Patient uses CPAP for sleep apnea at night. Denies significant cough, sore throat or URI symptoms but shortness of breath mainly on exertion with chest tightness. Nondysplastic feeling weak and numbness but without any focal symptoms pertaining to stroke. In ED, documented as hypoxic 85% on 2 L of oxygen which increases more on walking. She follows outpatient temperature regulator pyrometer Dr. Kallie Salazar, [facility] and PCP Dr. Jiang. Patient had extensive workup in the ED does not show any significant abnormality. Vitals, labs and CT angiogram chest reviewed. Twelve-lead EKG normal sinus rhythm 71 bpm. Family history: Her mother had history of asthma. Social history: Denies smoking cigarettes or significant alcohol intake. [facility] Medical History Hypertrophic scar Fall as cause of accidental injury at home as place of occurrence Unspecified open wound of left cheek and temporomandibular area, sequela Unspecified open wound of lip, sequela Contusion of other part of head, sequela Vitamin D deficiency Heart murmur GERD (gastroesophageal reflux disease) History of blood clots Allergies HISTORY OF NECK DECOMPRESSION Plantar fasciitis Carpal tunnel syndrome Home Medications ?Medication ?Instructions ?Recorded ?Last Taken ?Type albuterol sulfate 90 mcg/actuation 1 puff inhalation Q4H PRN PRN 12/30/21 Unknown History aerosol inhaler sob/wheezing atorvastatin 10 mg tablet 10 mg PO QHS 12/30/21 Unknown History cholecalciferol (vitamin D3) 1,250 50,000 unit PO SUWE 12/30/21 Unknown History mcg (50,000 unit) capsule dapsone 25 mg tablet 25 mg PO DAILY 12/30/21 Unknown History duloxetine 20 mg capsule,delayed 20 mg PO DAILY 12/30/21 Unknown History release gabapentin 300 mg capsule 600 mg PO TID 12/30/21 Unknown History lansoprazole 30 mg capsule,delayed 30 mg PO DAILY 12/30/21 Unknown History release naproxen 500 mg tablet 500 mg PO BID #14 tabs 12/30/21 Unknown Rx albuterol sulfate 90 mcg/actuation 1 inh inhalation Q6H PRN shortness 05/17/23 Unknown Rx breath activated powder inhaler of breath or wheezing #1 ea prednisone 50 mg tablet 50 mg PO DAILY 5 days #5 tabs 05/17/23 Unknown Rx Allergy/AdvReac Type Severity Reaction Status Date / Time codeine AdvReac Nausea/Vom/ Verified 05/11/24 09:18 Diarrhea Family History Mother Asthma Arthritis Diabetes Hypertension Father Arthritis Hypertension Grandmother Arthritis Diabetes Hypertension Surgical History History of fasciotomy H/O excision of lamina of cervical vertebra for decompression of spinal cord History of D&C History of endometrial ablation H/O elbow surgery History of Social History Smoking Status: Current every day smoker tobacco type: cigarettes alcohol intake: current substance use type: does not use additional social history: Does not take aspirin Does take ibuprofen as needed ROS ROS Narrative Constitutional: Reports fatigue and weakness. No fever. HEENT: Reports systems reviewed and no addt'l complaints, except as documented Respiratory/Chest: As described in HPI CVS: No chest pressure or anginal-like symptoms. Gastrointestinal: Occasional right upper quadrant discomfort and is undergoing outpatient evaluation for cholelithiasis by her GI. Denies coffee ground emesis, hematemesis or vomiting or acute abdominal pain Genitourinary: Denies burning urination or new urinary tract symptoms Musculoskeletal: Denies acute joint pain or limited range of motion. No acute injury Neurologic: Denies seizure-like symptoms. No acute or strokelike symptoms. skin: No ulcer. No rash Endocrinology: Reports systems reviewed and no addt'l complaints, except as documented Hematologic/Lymphatic: Reports systems reviewed and no addt'l complaints, except as documented Rest 14 ROS are negative except as mentioned in HPI Vital Signs Vital Signs Vital Signs: 05/11/24 09:18 05/11/24 09:25 05/11/24 09:44 Temperature 97.9 F Temperature Source Temporal Pulse Rate 76 Respiratory Rate 18 Respiratory Effort Short of Breath Respiratory Depth Shallow Blood Pressure 160/94 H Blood Pressure Mean 116 Pulse Ox 91 85 Oxygen Delivery Method Room Air Room Air Nasal Cannula Oxygen Flow Rate (L/min) 2 05/11/24 11:18 05/11/24 12:47 Temperature Temperature Source Pulse Rate 57 L Respiratory Rate 14 Respiratory Effort Respiratory Depth Blood Pressure 131/77 H Blood Pressure Mean 95 Pulse Ox 93 97 Oxygen Delivery Method Nasal Cannula Nasal Cannula Oxygen Flow Rate (L/min) 2 2 Weight Weight: 259 lb 7.745 oz Body Mass Index (BMI) 40.6 Physical Exam Narrative General: Alert, Oriented x3, Cooperative. BMI 40.6 kg/m? obesity grade 3 HEENT: Atraumatic, PERRLA, EOMI, Normocephalic Oral: No Gingival or Mucosal Lesions/ Ulcerations Neck: Supple, No JVD, Negative Carotid Bruits Chest wall/Lungs: Air entry diminished in bilateral lung bases. Bilateral fine wheezing on coughing. Cardiovascular: Regular rate, Regular Rhythm, Normal S1, Normal S2, No M/G/R Abdomen: Bowel Sounds Present, Soft, Non Tender, Non-Distended : No dysuria. No renal angle tenderness. No suprapubic tenderness. Extremities: No edema, Capillary Refill Less than 3 Seconds Skin: No rashes, No breakdown Musculoskeletal: No Tenderness to Palpation of Joints or Extremities Neurological: Cranial nerves II-XII grossly intact, DTR 2+/4. No acute focal neurological deficit. Psych/Mental Status: Normal Affect, Appropriate. Results Lab / Micro Data 05/11/24 09:42 05/11/24 09:42 Labs: Laboratory Results - last 24 hr 05/11/24 09:42: WBC 7.6, RBC 3.78 L, Hgb 13.2, Hct 40.1, MCV 106.1 H, MCH 34.9 H , MCHC 32.9, RDW Std Deviation 58.1 H, RDW Coeff of Jose 14.9 H, Plt Count 337, MPV 9.5, Immature Gran % (Auto) 0.700, Neut % (Auto) 61.7, Lymph % (Auto) 25.9, Prentiss % (Auto) 9.0, Eos % (Auto) 2.2, Baso % (Auto) 0.5, Absolute Neuts (auto) 4.7, Absolute Lymphs (auto) 1.98, Nucleated RBC % 0, Sodium 137, Potassium 3.8, Chloride 106, Carbon Dioxide 24.0, Anion Gap 7, BUN 10, Creatinine 0.93, Estim Creat Clear Calc 102.41, Est GFR (MDRD) Af Amer 84, Est GFR (MDRD) Non-Af 70, BUN/Creatinine Ratio 10.8, Glucose 135 H, Calcium 9.3, Troponin I High Sens 3, B-Natriuretic Peptide 23.0 Micro: Microbiology 05/11/24 10:35 Mucosa - Nose SARS-CoV-2, Influenza & RSV (PCR) - Final Imaging Radiology Impression Chest CTA 05/11/24 09:37 IMPRESSION: Normal CTA chest examination, without a demonstrated pulmonary embolism or arterial dissection. Electronically Signed: Radhames Singh MD at 10:17 EDT Reading Location ID and State: [facility] / [place] , Service support , Assessment & Plan Assessment/Plan (1) Asthma exacerbation: (2) Hypoxia: PLAN: Plan This is 44-year-old female being admitted for management of acute asthma exacerbation. 1. Acute asthma exacerbation associated with mild hypoxia: Patient is being admitted on MedSur floor as an observation status. Patient is being managed on scheduled bronchodilator, IV Solu-Medrol, Mucinex, incentive spirometry and Pep. Home oxygen qualification prior to discharge. PCR for SARS-CoV-2 influenza and RSV are negative. Chest CT individually reviewed does not show pulmonary embolism arterial dissection. No leukocytosis. Patient is stated she is on Singulair but it does not show on her home medications. 2. Cervical peripheral neuropathy with history of cervical spinal laminectomy: Patient on gabapentin, duloxetine at home. Continued 3. GERD: On PPI continued. 4. Dyslipidemia on atorvastatin continued. 5. Morbid obesity: BMI 40.6 kg/m? weight loss counseling done. Advised follow- up PCP. DVT prophylaxis moderate risk: Lovenox 40 mg subcu daily. Living will/advanced directive/end of life care: Patient does not have living will or advanced directive. Does not have power of collections attorney for health. Her in the ER is next of kin. After discussion of benefits/risks procedures involved with full code, DNR CC arrest and DNR CC, the patient opted for full code. Patient does want artificial life support including intubation, tube feed, ventilator and/chest compression, central venous catheter, vasopressor and DC shock if needed Total time spent in [id number] encounter in discussion of advanced directive 17 minutes. Microbiology Past 72 Hours 05/11/24 10:35 Mucosa - Nose SARS-CoV-2, Influenza & RSV (PCR) - Final Laboratory Results 05/11/24 09:42: WBC 7.6, RBC 3.78 L, Hgb 13.2, Hct 40.1, MCV 106.1 H, MCH 34.9 H , MCHC 32.9, RDW Std Deviation 58.1 H, RDW Coeff of Jose 14.9 H, Plt Count 337, MPV 9.5, Immature Gran % (Auto) 0.700, Neut % (Auto) 61.7, Lymph % (Auto) 25.9, Prentiss % (Auto) 9.0, Eos % (Auto) 2.2, Baso % (Auto) 0.5, Absolute Neuts (auto) 4.7, Absolute Lymphs (auto) 1.98, Nucleated RBC % 0, Sodium 137, Potassium 3.8, Chloride 106, Carbon Dioxide 24.0, Anion Gap 7, BUN 10, Creatinine 0.93, Estim Creat Clear Calc 102.41, Est GFR (MDRD) Af Amer 84, Est GFR (MDRD) Non-Af 70, BUN/Creatinine Ratio 10.8, Glucose 135 H, Calcium 9.3, Troponin I High Sens 3, B-Natriuretic Peptide 23.0 Clinical Impression(s) from Imaging Studies Chest CTA 05/11/24 09:37 IMPRESSION: Normal CTA chest examination, without a demonstrated pulmonary embolism or arterial dissection. Charges/Coding Visit Charges Inpatient E&M: 41980 Init Hosp L3 Procedures Hospitalists Procedures: 81386 Advncd Care Plan 30 Min
[2024-05-11] MEDS: Ipratropium/Albuterol Sulfate 3 ML AMPUL.NEB INHALATION (13:13)
[2024-05-11] MEDS: Enoxaparin 40 MG/0.4 ML Syringe SC (15:14)
[2024-05-11] MEDS: Lactated Ringers 1,000 ML 75 ML IV (15:14)
[2024-05-11] MEDS: 0.9% Saline Lock 10 ML Syringe IV (15:14)
[2024-05-11] MEDS: guaiFENesin/D-Methorphan TAB.SR.12H 2 TABLET PO (16:07)
[2024-05-11] MEDS: Metoprolol(XL)Succ 25 MG Tablet PO (21:35)
[2024-05-11] MEDS: Gabapentin 600 MG Tablet PO (21:35)
[2024-05-11] MEDS: Atorvastatin Calcium 10 MG Tablet PO (21:35)
[2024-05-12 04:00] VITALS: BP 132/75; PULSE 48; RESP 18; TEMP 36.6; O2SAT 93
[2024-05-12] MEDS: Levothyroxine 88 MCG Tablet PO (04:42)
[2024-05-12] MEDS: Gabapentin 600 MG Tablet PO (04:42)
[2024-05-12] MEDS: Ipratropium/Albuterol Sulfate 3 ML AMPUL.NEB INHALATION ×2 (06:44→11:22)
[2024-05-12] MEDS: Budesonide Respules 0.5 MG/2 ML AMPUL.NEB. INHALATION (06:45)
[2024-05-12 06:47] VITALS: PULSE 53; RESP 12; O2SAT 91
[2024-05-12 08:13] LABS: Thyroid Stim Hormone (TSH) 0.16 uIU/mL (0.358-3.74)
--- NOTE | 2024-05-12 09:34 | PCM.DC ---
Discharge Instructions Diet Discharge Diet: No restrictions Activity Discharge Activity: Return to Normal Activity Weight Bearing Status: Weight bearing as tolerated Dressing / Incision Call your doctor if you observe: Fever of 101 or Higher, Coldness, Increased Pain, Numbness or Tingling, Change in Color, Inability to urinate, Inability to have a bowel movement, Shortness of breath, Dizziness, Fainting spells, Swelling in the ankles, Chest pain, Prolonged hiccupping, Increased palpitations (irregular heartbeat) and Calf discomfort Follow Up Care When: IN 2 WEEKS Test Results: Test results from this visit will be discussed in further detail at your follow-up appointment, if applicable. Discharge Plan Admission Admit Date/Time: 05/11/24 13:10 Primary Reason for Your Visit: Asthma exacerbation with hypoxia Attending Provider: Angelo Duncan Primary Care Provider: Juve Jiang Instructions Additional Instructions / Restrictions: Follow-up [facility] senior planning manager in 1 month. Discharge Orders/Prescriptions Prescriptions: New Mucinex DM 30-600 mg Tablet Extended Release 12 Hr 2 tab PO BID 7 Days Qty: 28 0RF prednisone 20 mg tablet 40 mg PO DAILY 5 Days Qty: 10 0RF Continued atorvastatin 10 mg tablet 10 mg PO QHS Patient Comments: take 1 tablet by mouth daily at bedtime for cholesterol lansoprazole 30 mg capsule,delayed release(DR/EC) 30 mg PO DAILY Patient Comments: take 1 capsule by mouth once daily , 1/2 HOUR BEFORE BREAKFAST dapsone 25 mg tablet 100 mg PO DAILY Patient Comments: take 1 tablet by mouth once daily for 14 days Rx Instructions: x14 days, started 12/28/2021 gabapentin 300 mg capsule 600 mg PO TID Patient Comments: take 2 capsules by mouth three times a day albuterol sulfate 90 mcg/actuation HFA aerosol inhaler 1 puff INHALATION Q4H PRN PRN (Reason: sob/wheezing) Patient Comments: inhale 1 puff by mouth and INTO THE LUNGS every 4 hours if needed duloxetine 20 mg capsule,delayed release(DR/EC) 60 mg PO DAILY Patient Comments: take 1 capsule by mouth once daily cholecalciferol (vitamin D3) 1,250 mcg (50,000 unit) capsule 50,000 unit PO MUNOZ Patient Comments: take 1 capsule by mouth ONCE EVERY WEEK meloxicam 15 mg tablet 15 mg PO DAILY levothyroxine 88 mcg tablet 88 mcg PO DAILY montelukast 10 mg tablet 10 mg PO DAILY metoprolol succinate 25 mg tablet extended release 24 hr 25 mg PO QHS Trelegy Ellipta 200-62.5-25 mcg blister with device 1 ea INHALATION DAILY Discontinued albuterol sulfate 90 mcg/actuation aerosol powdr breath activated 1 inh inhalation Q6H PRN (Reason: shortness of breath or wheezing) Qty: 1 5RF Referrals / Follow Up: Juve Jiang DO [Primary Care Provider] - In 1 Week Disposition Disposition (needs filled in before D/C Order can be placed): Home, Self Care
[2024-05-12] MEDS: Meloxicam 15 MG Tablet PO (09:52)
[2024-05-12] MEDS: Pantoprazole Sodium 40 MG Tablet PO (09:52)
[2024-05-12] MEDS: DULoxetine Hcl 60 MG Capsule PO (09:52)
[2024-05-12] MEDS: Montelukast 10 MG Tablet PO (09:53)
[2024-05-12] MEDS: 0.9% Saline Lock 10 ML Syringe IV (09:53)
[2024-05-12] MEDS: guaiFENesin/D-Methorphan TAB.SR.12H 2 TABLET PO (09:53)
[2024-05-12 10:00] VITALS: BP 117/77; PULSE 72; RESP 18; TEMP 36.6; O2SAT 96
--- NOTE | 2024-05-12 10:23 | CASEMGMT ---
Social Work- SW met with pt to discuss self-pay status. Pt reports that her just started a new job and, therefore, she is not covered at the moment. Pt reports that she has assistance through [facility] pt assistance program, but does not qualify for medicaid. Pt states that she does not have scripts that she is concerned about. Pt was given HCAP program through [facility] and prescription assistance programs. Pt denies any other needs at this time. JOHN updated RNCM. DWAYNE Ferrer
--- NOTE | 2024-05-12 11:12 | PHA.DC_ITS ---
Pharmacy [facility] has performed discharge medication reconciliation and counseling for this patient. The patient's discharge medication list was reviewed for discrepancies and discrepancies were resolved. The patient was counseled on the following discharge medications and changes in medications for homegoing were reviewed. 1. PREDNISONE 2. MUCINEX The Reason for Use, instructions for use, and potential side effects were reviewed for all new medications. The patient's questions regarding all of their medications were answered. The patient was able to verbally demonstrate an understanding of their discharge medications. The patient was counselled by Jae Marrero PharmD Candidate Medications at Discharge Home Medications albuterol sulfate 90 mcg/actuation aerosol inhaler 1 puff inhalation Q4H PRN PRN sob/wheezing 12/30/21 atorvastatin 10 mg tablet 10 mg PO QHS 12/30/21 cholecalciferol (vitamin D3) 1,250 mcg (50,000 unit) capsule 50,000 unit PO MUNOZ 12/30/21 dapsone 25 mg tablet 100 mg PO DAILY 12/30/21 duloxetine 20 mg capsule,delayed release 60 mg PO DAILY 12/30/21 gabapentin 300 mg capsule 600 mg PO TID 12/30/21 lansoprazole 30 mg capsule,delayed release 30 mg PO DAILY 12/30/21 fluticasone fur. 200 mcg-umeclid 62.5 mcg-vilant 25 mcg inhalat.powder (Trelegy Ellipta) 1 ea inhalation DAILY 05/11/24 levothyroxine 88 mcg tablet 88 mcg PO DAILY 05/11/24 meloxicam 15 mg tablet 15 mg PO DAILY 05/11/24 metoprolol succinate 25 mg tablet,extended release 24 hr 25 mg PO QHS blood pressure 05/11/24 montelukast 10 mg tablet 10 mg PO DAILY 05/11/24 dextromethorphan-guaifenesin 30 mg-600 mg tablet extended [id number] hr (Mucinex DM) 2 tab PO BID 7 days #28 tabs 05/12/24 prednisone 20 mg tablet 40 mg (2 x 20 mg) PO DAILY 5 days #10 tabs 05/12/24
[2024-05-12 11:22] VITALS: PULSE 83; RESP 16; O2SAT 93
[2024-05-12 11:38] VITALS: O2SAT 93
[2024-05-12 11:51] VITALS: O2SAT 89; O2SAT 91; O2SAT 93
--- NOTE | 2024-05-12 11:51 | NURSING ---
pt spo2 when ambulating ranges from 89-93%, spo2 closer to 92-93% when ambulating and talking.
--- NOTE | 2024-05-12 12:02 | DS.PCM_ITS ---
Providers Date of Admission: 05/11/24 Date of Discharge: 05/12/24 Primary Care Physician: Dr. Juve Jiang DO Reason For Visit: ASTHMA EXACERBATION Diagnosis Discharge Diagnosis (1) Asthma exacerbation: Status: Acute Code(s): J45.901 - Unspecified asthma with (acute) exacerbation (2) Hypoxia: Status: Acute Code(s): R09.02 - Hypoxemia Plan This is 44-year-old female being admitted for management of acute asthma exacerbation. 1. Acute asthma exacerbation associated with mild hypoxia: Patient is being admitted on [facility] floor as an observation status. Patient is being managed on scheduled bronchodilator, IV Solu-Medrol, Mucinex, incentive spirometry and Pep. Home oxygen qualification prior to discharge. PCR for SARS-CoV-2 influenza and RSV are negative. Chest CT individually reviewed does not show pulmonary embolism arterial dissection. No leukocytosis. Patient is stated she is on Singulair but it does not show on her home medications. 05/12: Respiratory panel negative. Patient pulse ox was 88% on room air yesterday about 8:30 PM. In the morning 93% on room air patient is states that she has 85% on room air in the morning today but not documented unclear whether she is right or wrong. Home oxygen qualification test was done. Pulse ox 91% at rest on room air, 89% on ambulation therefore does not qualify for oxygen.Prescription given for prednisone burst therapy. She has albuterol inhaler and Trelegy at home. Prescription also given for Mucinex DM. Follow-up for [facility] stakeholder manager in about 1 month 2. Cervical peripheral neuropathy with history of cervical spinal laminectomy: Patient on gabapentin, duloxetine at home. Continued 3. GERD: On PPI continued. 4. Dyslipidemia on atorvastatin continued. 5. Morbid obesity: BMI 40.6 kg/m? weight loss counseling done. Advised follow- up PCP. 6. Low-TSH. TSH 0.16 may be from euthyroid sick syndrome. Advised complete thyroid function in 4 to 6 weeks after resolution of asthma exacerbation. DVT prophylaxis moderate risk: Lovenox 40 mg subcu daily. Living will/advanced directive/end of life care: Patient does not have living will or advanced directive. Does not have power of contract attorney for health. Her in the ER is next of kin. After discussion of benefits/risks procedures involved with full code, DNR CC arrest and DNR CC, the patient opted for full code. Patient does want artificial life support including intubation, tube feed, ventilator and/chest compression, central venous catheter, vasopressor and DC shock if needed Discharge medication reconciliation done. Discharge follow-up instructions completed. Discharge process discussed with the patient and all questions were answered to patient's satisfaction. Follow with PCP in 1 to 2 weeks Total time spent, exact 35 minutes on discharge meds reconciliation, examination, coordination of care with nurses and ancillary staff, review of imaging and blood test and discussion with the patient on follow-up instructions. Microbiology Past 72 Hours 05/11/24 13:20 Mucosa - Nasopharyngeal Respiratory Panel (PCR) - Final 05/11/24 10:35 Mucosa - Nose SARS-CoV-2, Influenza & RSV (PCR) - Final Laboratory Results 05/12/24 06:57: TSH 0.16 L Clinical Impression(s) from Imaging Studies Chest CTA 05/11/24 09:37 IMPRESSION: Normal CTA chest examination, without a demonstrated pulmonary embolism or arterial dissection. Medications at Discharge Home Medications albuterol sulfate 90 mcg/actuation aerosol inhaler 1 puff inhalation Q4H PRN PRN sob/wheezing 12/30/21 atorvastatin 10 mg tablet 10 mg PO QHS 12/30/21 cholecalciferol (vitamin D3) 1,250 mcg (50,000 unit) capsule 50,000 unit PO MUNOZ 12/30/21 dapsone 25 mg tablet 100 mg PO DAILY 12/30/21 duloxetine 20 mg capsule,delayed release 60 mg PO DAILY 12/30/21 gabapentin 300 mg capsule 600 mg PO TID 12/30/21 lansoprazole 30 mg capsule,delayed release 30 mg PO DAILY 12/30/21 fluticasone fur. 200 mcg-umeclid 62.5 mcg-vilant 25 mcg inhalat.powder (Trelegy Ellipta) 1 ea inhalation DAILY 05/11/24 levothyroxine 88 mcg tablet 88 mcg PO DAILY 05/11/24 meloxicam 15 mg tablet 15 mg PO DAILY 05/11/24 metoprolol succinate 25 mg tablet,extended release 24 hr 25 mg PO QHS blood pressure 05/11/24 montelukast 10 mg tablet 10 mg PO DAILY 05/11/24 dextromethorphan-guaifenesin 30 mg-600 mg tablet extended [id number] hr (Mucinex DM) 2 tab PO BID 7 days #28 tabs 05/12/24 prednisone 20 mg tablet 40 mg (2 x 20 mg) PO DAILY 5 days #10 tabs 05/12/24 Physical Exam Narrative 6 seen and examined. Overall patient feeling well. She states in the mornings her pulse ox was low and it dips down otherwise most of the time remains good. No fever. Physical exam General: Alert, Oriented x3, Cooperative. BMI 40.6 kg/m? obesity grade 3 HEENT: Atraumatic, PERRLA, EOMI, Normocephalic Oral: No Gingival or Mucosal Lesions/ Ulcerations Neck: Supple, No JVD, Negative Carotid Bruits Chest wall/Lungs: Air entry diminished in bilateral lung bases. Dry cough. No wheezing. Cardiovascular: Regular rate, Regular Rhythm, Normal S1, Normal S2, No M/G/R Abdomen: Bowel Sounds Present, Soft, Non Tender, Non-Distended : No dysuria. No renal angle tenderness. No suprapubic tenderness. Extremities: No edema, Capillary Refill Less than 3 Seconds Skin: No rashes, No breakdown Musculoskeletal: No Tenderness to Palpation of Joints or Extremities Neurological: Cranial nerves II-XII grossly intact, DTR 2+/4. No acute focal neurological deficit. Psych/Mental Status: Normal Affect, Appropriate. Weight / BMI Weight Weight: 259 lb 1.849 oz Body Mass Index (BMI) 40.6 ABG / Lab / Microbiology Data 05/11/24 09:42 05/11/24 09:42 Laboratory: Laboratory Results - last 24 hr 05/11/24 09:42: WBC 7.6, RBC 3.78 L, Hgb 13.2, Hct 40.1, MCV 106.1 H, MCH 34.9 H , MCHC 32.9, RDW Std Deviation 58.1 H, RDW Coeff of Jose 14.9 H, Plt Count 337, MPV 9.5, Immature Gran % (Auto) 0.700, Neut % (Auto) 61.7, Lymph % (Auto) 25.9, Barber % (Auto) 9.0, Eos % (Auto) 2.2, Baso % (Auto) 0.5, Absolute Neuts (auto) 4.7, Absolute Lymphs (auto) 1.98, Nucleated RBC % 0, Sodium 137, Potassium 3.8, Chloride 106, Carbon Dioxide 24.0, Anion Gap 7, BUN 10, Creatinine 0.93, Estim Creat Clear Calc 102.41, Est GFR (MDRD) Af Amer 84, Est GFR (MDRD) Non-Af 70, BUN/Creatinine Ratio 10.8, Glucose 135 H, Calcium 9.3, Troponin I High Sens 3, B-Natriuretic Peptide 23.0 05/12/24 06:57: TSH 0.16 L Microbiology: Microbiology 05/11/24 13:20 Mucosa - Nasopharyngeal Respiratory Panel (PCR) - Final 05/11/24 10:35 Mucosa - Nose SARS-CoV-2, Influenza & RSV (PCR) - Final Radiography Diagnostic Testing: Radiology Impression Chest CTA 05/11/24 09:37 IMPRESSION: Normal CTA chest examination, without a demonstrated pulmonary embolism or arterial dissection. Electronically Signed: Radhames Singh MD at 10:17 EDT , D/C Instructions Discharge Diet: No restrictions Weight Bearing Status: Weight bearing as tolerated Call your doctor if you observe: Fever of 101 or Higher, Coldness, Increased Pain, Numbness or Tingling, Change in Color, Inability to urinate, Inability to have a bowel movement, Shortness of breath, Dizziness, Fainting spells, Swelling in the ankles, Chest pain, Prolonged hiccupping, Increased palpitations (irregular heartbeat) and Calf discomfort When: IN 2 WEEKS Meaningful Use Info Meaningful Use Meaningful Use Diagnoses (Choose all that apply): None applicable Ischemic Stroke Statin Dosing Therapy Reference: STATIN DOSE THERAPY REFERENCE: * Patients > 75 years receive moderate or high dose statin therapy. * Patients 75 years or YOUNGER should receive HIGH intensity statin dose unless contraindicated. You will be required to document reason for non-treatment if statin daily dose does not meet guidelines. HIGH DOSE STATIN THERAPY DAILY Atorvastatin > than or = to 40 mg Rosuvastatin > than or = to 20 mg Amlodipine + Atorvastatin > than or = to 2.5/40 mg Ezetimibe + Simvastatin 10/80 mg Simvastatin 80mg Discharge Plan Admission Admit Date/Time: 05/11/24 13:10 Primary Reason for Your Visit: Asthma exacerbation with hypoxia Attending Provider: Angelo Duncan Primary Care Provider: Juve Jiang Instructions Additional Instructions / Restrictions: Follow-up [facility] stakeholder manager in 1 month. Continue incentive spirometry and PEP for 1 week Discharge Orders/Prescriptions Prescriptions: New Mucinex DM 30-600 mg Tablet Extended Release 12 Hr 2 tab PO BID 7 Days Qty: 28 0RF prednisone 20 mg tablet 40 mg PO DAILY 5 Days Qty: 10 0RF Continued atorvastatin 10 mg tablet 10 mg PO QHS Patient Comments: take 1 tablet by mouth daily at bedtime for cholesterol lansoprazole 30 mg capsule,delayed release(DR/EC) 30 mg PO DAILY Patient Comments: take 1 capsule by mouth once daily , 1/2 HOUR BEFORE BREAKFAST dapsone 25 mg tablet 100 mg PO DAILY Patient Comments: take 1 tablet by mouth once daily for 14 days Rx Instructions: x14 days, started 12/28/2021 gabapentin 300 mg capsule 600 mg PO TID Patient Comments: take 2 capsules by mouth three times a day albuterol sulfate 90 mcg/actuation HFA aerosol inhaler 1 puff INHALATION Q4H PRN PRN (Reason: sob/wheezing) Patient Comments: inhale 1 puff by mouth and INTO THE LUNGS every 4 hours if needed duloxetine 20 mg capsule,delayed release(DR/EC) 60 mg PO DAILY Patient Comments: take 1 capsule by mouth once daily cholecalciferol (vitamin D3) 1,250 mcg (50,000 unit) capsule 50,000 unit PO MUNOZ Patient Comments: take 1 capsule by mouth ONCE EVERY WEEK meloxicam 15 mg tablet 15 mg PO DAILY levothyroxine 88 mcg tablet 88 mcg PO DAILY montelukast 10 mg tablet 10 mg PO DAILY metoprolol succinate 25 mg tablet extended release 24 hr 25 mg PO QHS Trelegy Ellipta 200-62.5-25 mcg blister with device 1 ea INHALATION DAILY Discontinued albuterol sulfate 90 mcg/actuation aerosol powdr breath activated 1 inh inhalation Q6H PRN (Reason: shortness of breath or wheezing) Qty: 1 5RF Referrals / Follow Up: Juve Jiang DO [Primary Care Provider] - In 1 Week Disposition Disposition (needs filled in before D/C Order can be placed): Home, Self Care Charges/Coding Visit Charges Inpatient E&M: 02272 Disch Hosp >30min
--- NOTE | 2024-05-12 12:42 | CASEMGMT ---
PRICILLA CAMPOS reviewed Home O2 testing, pt does not qualify for home oxygen. PRICILLA CAMPOS into pt room, recommended pt get a pulse ox to track oxygen at home and follow up with PCP. Pt states she does not have insurance but will likely get insurance in the next couple months and plans to follow up with doctor as soon as insurance kicks in. Pt states will track O2 in the meantime and will get a pulse ox to check O2 at home. Denies any further questions or concerns at this time.
== END 2024-05-12 13:35 | disposition home or self-care (01) ==
LOC: ED 10:11 → MS3 14:03
PROVIDERS: Admitting Provider Internal Medicine; Emergency Provider Emergency Medicine; PCP Student in an Organized Health Care Education/Training Program; Visit Provider Internal Medicine
DX: J45.901 Unspecified asthma with (acute) exacerbation (principal); E66.01 Morbid (severe) obesity due to excess calories; Z68.41 Body mass index [BMI] 40.0-44.9, adult; R09.02 Hypoxemia; F17.210 Nicotine dependence, cigarettes, uncomplicated; R53.1 Weakness; G47.30 Sleep apnea, unspecified; Z11.52 Encounter for screening for COVID-19; Z79.899 Other long term (current) drug therapy; E55.9 Vitamin D deficiency, unspecified; Z79.51 Long term (current) use of inhaled steroids; E78.5 Hyperlipidemia, unspecified; K21.9 Gastro-esophageal reflux disease without esophagitis; G62.9 Polyneuropathy, unspecified; R94.6 Abnormal results of thyroid function studies
CPT/HCPCS: 36415; 71275; 80048; 83880; 84443; 84484; 85025; 87631; 87633; 93005; 94640; 94668; 96361; 96372; 96374; 96376; 99221; 99252; 99285; 99406; J7120; Q9967; A4216; G0378; G0463